=== PATIENT | male | born 1975 | race Hispanic/Latino ===

== ENCOUNTER 2016-11-02 13:42 | Emergency (ER) | payer OTHER ==
[~2016-11-02 13:42] MED LIST: OXYC-208 PO; PERC5TAB6 PO; TYLE650T30 PO; no home medications
--- NOTE | 2016-11-02 14:23 | REP ---
Left knee series: Five views. History: Pain. No injury. Findings: Five views of the left knee demonstrate a bipartite patella unchanged from the comparison study October 08, 2015. Bones, joints, and soft tissues are otherwise unremarkable. Impression: Bipartite patella, normal variant. No other radiographic abnormality. Signed by Tushar Caldera MD 11/02/2016 02:14 P
--- NOTE | 2016-11-02 15:11 | EDDOCDS ---
Physician Documentation [facility] Name: Reilly Quinonez Age: 40 yrs Sex: Male : 1975 Arrival Date: 11/02/2016 Time: 13:42 Bed Triage 1 Private MD: Mark Dorman W Disposition: 11/02/16 15:07 Discharged to Home/Self Care. Impression: Pain in left knee. - Condition is Stable. - Discharge Instructions: Pain Without a Known Cause, Knee Pain. - Medication Reconciliation, Local Pharmacy Hours form. - Follow up: Orthopaedics, [facility]; When: Call to arrange an appointment; Reason: Further diagnostic work-up, Recheck today's complaints, Continuance of care. - Problem is new. - Symptoms are unchanged. Historical: - Allergies: PENICILLINS (Rash); - Home Meds: 1. none - PMHx: Cancer, Testicular; - PSHx: testicle removal with lymph node removal (2013); - Social history: Smoking status: Patient uses tobacco products, current every day smoker. No barriers to communication noted, The patient speaks fluent Mohawk, Speaks appropriately for age. - Family history: Not pertinent. - : The pt / caregiver states he / she is not on anticoagulants. Home medication list is obtained from the patient. - Exposure Risk Screening:: None identified. Vital Signs: 11/02 13:44 BP 110 / 72; Pulse 114; Resp 18 S; Temp 99.6(O); Pulse Ox 99% on R/A; Weight 74.84 kg / gr2 164.99 lbs (R); Height 5 ft. 8 in. (172.72 cm) (R); Pain 10/10; 15:06 BP 112 / 74; Pulse 98; Resp 16; Temp 98.5(O); Pulse Ox 99% on R/A; Pain 3/10; js13 13:44 Body Mass Index 25.09 (74.84 kg, 172.72 cm) gr2 MDM: 13:52 Knee, Complete Ordered. EDMS Signatures: Dispatcher [employer] EDMS Faye Nunez RN RN kr3 Mateusz Herndon PA PA btw Sullivan, JenniferRN RN js13 MTDD
--- NOTE | 2016-11-02 15:11 | EDDOCDS ---
Nurse's Notes [facility] Name: Reilly Quinonez Age: 40 yrs Sex: Male : 1975 Arrival Date: 11/02/2016 Time: 13:42 Bed Triage 1 Private MD: Mark Dorman W Diagnosis: Pain in left knee Presentation: 11/02 13:47 Presenting complaint: Patient states: left knee pain for several days with no known kr3 injury. Adult Sepsis Screening: The patient does not have new or worsening altered mentation. Patient's respiratory rate is less than 22. Systolic blood pressure is greater than 100. Patient has a qSOFA score of 0- Negative Sepsis Screen. Suicide/Homicide risk assessment- the patient denies having any suicidal and/or homicidal ideations and does not present with any other emotional, behavioral or mental health complaints. 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 Transition of care: patient was not received from another setting of care. 13:47 Acuity: COLELEN Level 4 kr3 13:47 Method Of Arrival: Walkin/Carried/Asstd kr3 Triage Assessment: 13:49 General: Appears uncomfortable, Behavior is cooperative. Pain: Location: left knee. kr3 Pain: Aggravated by repositioning, weight bearing. HIV screening NA for this visit Offered previously. Respiratory: Respiratory effort is even, unlabored. Musculoskeletal: Range of motion limited in left knee. Historical: - Allergies: PENICILLINS (Rash); - Home Meds: 1. none - PMHx: Cancer, Testicular; - PSHx: testicle removal with lymph node removal (2013); - Social history: Smoking status: Patient uses tobacco products, current every day smoker. No barriers to communication noted, The patient speaks fluent Greek, Speaks appropriately for age. - Family history: Not pertinent. - : The pt / caregiver states he / she is not on anticoagulants. Home medication list is obtained from the patient. - Exposure Risk Screening:: None identified. Screenin:30 Screening information is obtained from the patient. Fall risk: No risks identified. js13 Assistance ADL's: requires no assistance with activities of daily living. Abuse/DV Screen: The patient / caregiver reports he/she is: not in a situation that causes fear, pain or injury. Nutritional screening: No deficits noted. Advance Directives: There is no active DNR order. home support is adequate. Assessment: 15:06 General: Appears in no apparent distress, Behavior is appropriate for age, cooperative. js13 Pain: Location: left knee. Neurological: Level of Consciousness is awake, alert. Respiratory: Airway is patent Respiratory effort is even, unlabored, Respiratory pattern is regular, symmetrical. Derm: Skin is pink, warm & dry. Vital Signs: 13:44 BP 110 / 72; Pulse 114; Resp 18 S; Temp 99.6(O); Pulse Ox 99% on R/A; Weight 74.84 kg gr2 (R); Height 5 ft. 8 in. (172.72 cm) (R); Pain 10/10; 15:06 BP 112 / 74; Pulse 98; Resp 16; Temp 98.5(O); Pulse Ox 99% on R/A; Pain 3/10; js13 13:44 Body Mass Index 25.09 (74.84 kg, 172.72 cm) gr2 Vitals: 13:44 Log In Time: November 02, 2016 at 13:44. gr2 ED Course: 13:43 Patient visited by Devin Gr. gr2 13:43 Patient moved to Waiting gr2 13:44 Mark Dorman is Private Physician. gr2 13:45 Patient visited by Devin Gr. gr2 13:45 Patient moved to Pre RCE gr2 13:48 Triage Initiated kr3 14:19 Patient moved to Triage 1 js13 14:30 The patient / caregiver is instructed regarding the plan of care and ED course. js13 14:30 No IV's were initiated during this patient's visit. No procedures done that require js13 assistance. 14:39 Knee, Complete Returned. EDMS 14:49 [facility]z Herndon PA [facility] btw 14:49 Dixie Calles MD is Attending Physician. btw 14:49 Patient visited by Mateusz Herndon PA. btw 15:[facility] btw Order Results: Radiology Order: Knee, Complete Test: Knee, Complete REASON FOR EXAMINATION: pain no injury; Left knee series: Five views.; ; History: Pain. 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 Bones, joints, and soft tissues are; otherwise unremarkable.; ; Impression:; ; Bipartite patella, normal variant. No other radiographic abnormality.; ; ; Signed by; Tushar Caldera MD 11/02/2016 02:14 P; Outcome: 15:06 Discharge Assessment: Patient awake, alert and oriented x 3. No cognitive and/or js13 functional deficits noted. Patient verbalized understanding of disposition instructions. patient administered narcotics - no. The following High Risk Discharge criteria are identified: None. Discharged to home ambulatory. Condition: stable. Discharge instructions given to patient, Instructed on discharge instructions, follow up and referral plans. Demonstrated understanding of instructions, Pt was receptive of discharge instructions/ teaching. No special radiology studies were completed. Property :Personal belongings accompany Pt. 15:07 Discharge ordered by Provider. bt 15:11 Patient left the ED. js13 Signatures: Dispatcher [employer] EDMS Faye Nunez,RN RN kr3 Mateusz Herndon PA PA btw Sullivan, Jennifer, RN RN js13 Devin Gr gr2 [facility]ITALCh[facility]
--- NOTE | 2016-11-02 15:22 | EDDOCDS ---
Nurse's Notes [facility] Name: Reilly Quinonez Age: 40 yrs Sex: Male : 1975 Arrival Date: 11/02/2016 Time: 13:42 Bed Triage 1 Private MD: Mark Dorman W Diagnosis: Pain in left knee Presentation: 11/02 13:47 Presenting complaint: Patient states: left knee pain for several days with no known kr3 injury. Adult Sepsis Screening: The patient does not have new or worsening altered mentation. Patient's respiratory rate is less than 22. Systolic blood pressure is greater than 100. Patient has a qSOFA score of 0- Negative Sepsis Screen. Suicide/Homicide risk assessment- the patient denies having any suicidal and/or homicidal ideations and does not present with any other emotional, behavioral or mental health complaints. 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 Transition of care: patient was not received from another setting of care. 13:47 Acuity: COLLEEN Level 4 kr3 13:47 Method Of Arrival: Walkin/Carried/Asstd kr3 Triage Assessment: 13:49 General: Appears uncomfortable, Behavior is cooperative. Pain: Location: left knee. kr3 Pain: Aggravated by repositioning, weight bearing. HIV screening NA for this visit Offered previously. Respiratory: Respiratory effort is even, unlabored. Musculoskeletal: Range of motion limited in left knee. Historical: - Allergies: PENICILLINS (Rash); - Home Meds: 1. none - PMHx: Cancer, Testicular; - PSHx: testicle removal with lymph node removal (2013); - Social history: Smoking status: Patient uses tobacco products, current every day smoker. No barriers to communication noted, The patient speaks fluent Persian, Speaks appropriately for age. - Family history: Not pertinent. - : The pt / caregiver states he / she is not on anticoagulants. Home medication list is obtained from the patient. - Exposure Risk Screening:: None identified. Screenin:30 Screening information is obtained from the patient. Fall risk: No risks identified. js13 Assistance ADL's: requires no assistance with activities of daily living. Abuse/DV Screen: The patient / caregiver reports he/she is: not in a situation that causes fear, pain or injury. Nutritional screening: No deficits noted. Advance Directives: There is no active DNR order. home support is adequate. Assessment: 15:06 General: Appears in no apparent distress, Behavior is appropriate for age, cooperative. js13 Pain: Location: left knee. Neurological: Level of Consciousness is awake, alert. Respiratory: Airway is patent Respiratory effort is even, unlabored, Respiratory pattern is regular, symmetrical. Derm: Skin is pink, warm & dry. Vital Signs: 13:44 BP 110 / 72; Pulse 114; Resp 18 S; Temp 99.6(O); Pulse Ox 99% on R/A; Weight 74.84 kg gr2 (R); Height 5 ft. 8 in. (172.72 cm) (R); Pain 10/10; 15:06 BP 112 / 74; Pulse 98; Resp 16; Temp 98.5(O); Pulse Ox 99% on R/A; Pain 3/10; js13 13:44 Body Mass Index 25.09 (74.84 kg, 172.72 cm) gr2 Vitals: 13:44 Log In Time: November 02, 2016 at 13:44. gr2 ED Course: 13:43 Patient visited by Devin Gr. gr2 13:43 Patient moved to Waiting gr2 13:44 Mark Dorman is Private Physician. gr2 13:45 Patient visited by Devin Gr. gr2 13:45 Patient moved to Pre RCE gr2 13:48 Triage Initiated kr3 14:19 Patient moved to Triage 1 js13 14:30 The patient / caregiver is instructed regarding the plan of care and ED course. js13 14:30 No IV's were initiated during this patient's visit. No procedures done that require js13 assistance. 14:39 Knee, Complete Returned. EDMS 14:49 Mateusz Herndon PA is [facility]. btw 14:49 Dixie Calles MD is Attending Physician. btw 14:49 Patient visited by Mateusz Herndon PA. btw 15:07 [facility]. btw Order Results: Radiology Order: Knee, Complete Test: Knee, Complete REASON FOR EXAMINATION: pain no injury; Left knee series: Five views.; ; History: Pain. 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 Bones, joints, and soft tissues are; otherwise unremarkable.; ; Impression:; ; Bipartite patella, normal variant. No other radiographic abnormality.; ; ; Signed by; Tushar Caldera MD 11/02/2016 02:14 P; Outcome: 15:06 Discharge Assessment: Patient awake, alert and oriented x 3. No cognitive and/or js13 functional deficits noted. Patient verbalized understanding of disposition instructions. patient administered narcotics - no. The following High Risk Discharge criteria are identified: None. Discharged to home ambulatory. Condition: stable. Discharge instructions given to patient, Instructed on discharge instructions, follow up and referral plans. Demonstrated understanding of instructions, Pt was receptive of discharge instructions/ teaching. No special radiology studies were completed. Property :Personal belongings accompany Pt. 15:07 Discharge ordered by Provider. btw 15:11 Patient left the ED. js13 15:21 Patient left the ED. btw Signatures: Dispatcher [employer] EDFaye Victor,TERRI RN kr3 Mateusz Herndon PA PA btw Virginia Hale RN RN js13 Devin Gr gr2 CAR
--- NOTE | 2016-11-02 15:22 | EDDOCDS ---
Physician Documentation [facility] Name: Reilly Quinonez Age: 40 yrs Sex: Male : 1975 Arrival Date: 11/02/2016 Time: 13:42 Bed Triage 1 Private MD: Mark Dorman W Disposition: 11/02/16 15:07 Discharged to Home/Self Care. Impression: Pain in left knee. - Condition is Stable. - Discharge Instructions: Pain Without a Known Cause, Knee Pain. - Medication Reconciliation, Local Pharmacy Hours form. - Follow up: Orthopaedics, [facility]; When: Call to arrange an appointment; Reason: Further diagnostic work-up, Recheck today's complaints, Continuance of care. - Problem is new. - Symptoms are unchanged. Historical: - Allergies: PENICILLINS (Rash); - Home Meds: 1. none - PMHx: Cancer, Testicular; - PSHx: testicle removal with lymph node removal (2013); - Social history: Smoking status: Patient uses tobacco products, current every day smoker. No barriers to communication noted, The patient speaks fluent Latvian, Speaks appropriately for age. - Family history: Not pertinent. - : The pt / caregiver states he / she is not on anticoagulants. Home medication list is obtained from the patient. - Exposure Risk Screening:: None identified. Vital Signs: 11/02 13:44 BP 110 / 72; Pulse 114; Resp 18 S; Temp 99.6(O); Pulse Ox 99% on R/A; Weight 74.84 kg / gr2 164.99 lbs (R); Height 5 ft. 8 in. (172.72 cm) (R); Pain 10/10; 15:06 BP 112 / 74; Pulse 98; Resp 16; Temp 98.5(O); Pulse Ox 99% on R/A; Pain 3/10; js13 13:44 Body Mass Index 25.09 (74.84 kg, 172.72 cm) gr2 MDM: 13:52 Knee, Complete Ordered. EDMS Signatures: Dispatcher [employer] EDMS Faye Nunez RN RN kr3 Mateusz Herndon PA PA btw Sullivan, JenniferRN RN js13 MTDD
--- NOTE | 2016-11-02 15:23 | EDDOCDS ---
Physician Documentation [facility] Name: Reilly Quinonez Age: 40 yrs Sex: Male : 1975 Arrival Date: 11/02/2016 Time: 13:42 Bed Triage 1 Private MD: Mark Dorman W Disposition: 11/02/16 15:07 Discharged to Home/Self Care. Impression: Pain in left knee. - Condition is Stable. - Discharge Instructions: Pain Without a Known Cause, Knee Pain. - Medication Reconciliation, Local Pharmacy Hours form. - Follow up: Orthopaedics, [facility]; When: Call to arrange an appointment; Reason: Further diagnostic work-up, Recheck today's complaints, Continuance of care. - Problem is new. - Symptoms are unchanged. Historical: - Allergies: PENICILLINS (Rash); - Home Meds: 1. none - PMHx: Cancer, Testicular; - PSHx: testicle removal with lymph node removal (2013); - Social history: Smoking status: Patient uses tobacco products, current every day smoker. No barriers to communication noted, The patient speaks fluent Urdu, Speaks appropriately for age. - Family history: Not pertinent. - : The pt / caregiver states he / she is not on anticoagulants. Home medication list is obtained from the patient. - Exposure Risk Screening:: None identified. Vital Signs: 11/02 13:44 BP 110 / 72; Pulse 114; Resp 18 S; Temp 99.6(O); Pulse Ox 99% on R/A; Weight 74.84 kg / gr2 164.99 lbs (R); Height 5 ft. 8 in. (172.72 cm) (R); Pain 10/10; 15:06 BP 112 / 74; Pulse 98; Resp 16; Temp 98.5(O); Pulse Ox 99% on R/A; Pain 3/10; js13 13:44 Body Mass Index 25.09 (74.84 kg, 172.72 cm) gr2 MDM: 13:52 Knee, Complete Ordered. EDMS Signatures: Dispatcher [employer] EDMS Faye Nunez RN RN kr3 Mateusz Herndon PA PA btw Sullivan, JenniferRN RN js13 MTDD
--- NOTE | 2016-11-02 15:23 | EDDOCDS ---
Nurse's Notes [facility] Name: Reilly Quinonez Age: 40 yrs Sex: Male : 1975 Arrival Date: 11/02/2016 Time: 13:42 Bed Triage 1 Private MD: Mark Dorman W Diagnosis: Pain in left knee Presentation: 11/02 13:47 Presenting complaint: Patient states: left knee pain for several days with no known kr3 injury. Adult Sepsis Screening: The patient does not have new or worsening altered mentation. Patient's respiratory rate is less than 22. Systolic blood pressure is greater than 100. Patient has a qSOFA score of 0- Negative Sepsis Screen. Suicide/Homicide risk assessment- the patient denies having any suicidal and/or homicidal ideations and does not present with any other emotional, behavioral or mental health complaints. 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 Transition of care: patient was not received from another setting of care. 13:47 Acuity: COLLEEN Level 4 kr3 13:47 Method Of Arrival: Walkin/Carried/Asstd kr3 Triage Assessment: 13:49 General: Appears uncomfortable, Behavior is cooperative. Pain: Location: left knee. kr3 Pain: Aggravated by repositioning, weight bearing. HIV screening NA for this visit Offered previously. Respiratory: Respiratory effort is even, unlabored. Musculoskeletal: Range of motion limited in left knee. Historical: - Allergies: PENICILLINS (Rash); - Home Meds: 1. none - PMHx: Cancer, Testicular; - PSHx: testicle removal with lymph node removal (2013); - Social history: Smoking status: Patient uses tobacco products, current every day smoker. No barriers to communication noted, The patient speaks fluent Divehi, Speaks appropriately for age. - Family history: Not pertinent. - : The pt / caregiver states he / she is not on anticoagulants. Home medication list is obtained from the patient. - Exposure Risk Screening:: None identified. Screenin:30 Screening information is obtained from the patient. Fall risk: No risks identified. js13 Assistance ADL's: requires no assistance with activities of daily living. Abuse/DV Screen: The patient / caregiver reports he/she is: not in a situation that causes fear, pain or injury. Nutritional screening: No deficits noted. Advance Directives: There is no active DNR order. home support is adequate. Assessment: 15:06 General: Appears in no apparent distress, Behavior is appropriate for age, cooperative. js13 Pain: Location: left knee. Neurological: Level of Consciousness is awake, alert. Respiratory: Airway is patent Respiratory effort is even, unlabored, Respiratory pattern is regular, symmetrical. Derm: Skin is pink, warm & dry. Vital Signs: 13:44 BP 110 / 72; Pulse 114; Resp 18 S; Temp 99.6(O); Pulse Ox 99% on R/A; Weight 74.84 kg gr2 (R); Height 5 ft. 8 in. (172.72 cm) (R); Pain 10/10; 15:06 BP 112 / 74; Pulse 98; Resp 16; Temp 98.5(O); Pulse Ox 99% on R/A; Pain 3/10; js13 13:44 Body Mass Index 25.09 (74.84 kg, 172.72 cm) gr2 Vitals: 13:44 Log In Time: November 02, 2016 at 13:44. gr2 ED Course: 13:43 Patient visited by Devin Gr. gr2 13:43 Patient moved to Waiting gr2 13:44 Mark Dorman is Private Physician. gr2 13:45 Patient visited by Devin Gr. gr2 13:45 Patient moved to Pre RCE gr2 13:48 Triage Initiated kr3 14:19 Patient moved to Triage 1 js13 14:30 The patient / caregiver is instructed regarding the plan of care and ED course. js13 14:30 No IV's were initiated during this patient's visit. No procedures done that require js13 assistance. 14:39 Knee, Complete Returned. EDMS 14:49 Mateusz Herndon PA is [facility]. btw 14:49 Dixie Calles MD is Attending Physician. btw 14:49 Patient visited by Mateusz Herndon PA. btw 15:07 [facility] btw Order Results: Radiology Order: Knee, Complete Test: Knee, Complete REASON FOR EXAMINATION: pain no injury; Left knee series: Five views.; ; History: Pain. 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 Bones, joints, and soft tissues are; otherwise unremarkable.; ; Impression:; ; Bipartite patella, normal variant. No other radiographic abnormality.; ; ; Signed by; Tushar Caldera MD 11/02/2016 02:14 P; Outcome: 15:06 Discharge Assessment: Patient awake, alert and oriented x 3. No cognitive and/or js13 functional deficits noted. Patient verbalized understanding of disposition instructions. patient administered narcotics - no. The following High Risk Discharge criteria are identified: None. Discharged to home ambulatory. Condition: stable. Discharge instructions given to patient, Instructed on discharge instructions, follow up and referral plans. Demonstrated understanding of instructions, Pt was receptive of discharge instructions/ teaching. No special radiology studies were completed. Property :Personal belongings accompany Pt. 15:07 Discharge ordered by Provider. btw 15:11 Patient left the ED. js13 15:21 Patient left the ED. btw 15:22 Patient left the ED. btw Signatures: Dispatcher [employer] EDMS Faye Nunez,RN RN kr3 Mateusz Herndon PA PA btVirginia BriggsRN RN js13 Devin Gr gr2 CAR
--- NOTE | 2016-11-04 16:24 | EDDOCDS ---
Nurse's Notes [facility] Name: Reilly uQinonez Age: 40 yrs Sex: Male : 1975 Arrival Date: 11/02/2016 Time: 13:42 Bed Triage 1 Private MD: Mark Dorman W Diagnosis: Pain in left knee Presentation: 11/02 13:47 Presenting complaint: Patient states: left knee pain for several days with no known kr3 injury. Adult Sepsis Screening: The patient does not have new or worsening altered mentation. Patient's respiratory rate is less than 22. Systolic blood pressure is greater than 100. Patient has a qSOFA score of 0- Negative Sepsis Screen. Suicide/Homicide risk assessment- the patient denies having any suicidal and/or homicidal ideations and does not present with any other emotional, behavioral or mental health complaints. 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 Transition of care: patient was not received from another setting of care. 13:47 Acuity: COLLEEN Level 4 kr3 13:47 Method Of Arrival: Walkin/Carried/Asstd kr3 Triage Assessment: 13:49 General: Appears uncomfortable, Behavior is cooperative. Pain: Location: left knee. kr3 Pain: Aggravated by repositioning, weight bearing. HIV screening NA for this visit Offered previously. Respiratory: Respiratory effort is even, unlabored. Musculoskeletal: Range of motion limited in left knee. Historical: - Allergies: PENICILLINS (Rash); - Home Meds: 1. none - PMHx: Cancer, Testicular; - PSHx: testicle removal with lymph node removal (2013); - Social history: Smoking status: Patient uses tobacco products, current every day smoker. No barriers to communication noted, The patient speaks fluent French, Speaks appropriately for age. - Family history: Not pertinent. - : The pt / caregiver states he / she is not on anticoagulants. Home medication list is obtained from the patient. - Exposure Risk Screening:: None identified. Screenin:30 Screening information is obtained from the patient. Fall risk: No risks identified. js13 Assistance ADL's: requires no assistance with activities of daily living. Abuse/DV Screen: The patient / caregiver reports he/she is: not in a situation that causes fear, pain or injury. Nutritional screening: No deficits noted. Advance Directives: There is no active DNR order. home support is adequate. Assessment: 15:06 General: Appears in no apparent distress, Behavior is appropriate for age, cooperative. js13 Pain: Location: left knee. Neurological: Level of Consciousness is awake, alert. Respiratory: Airway is patent Respiratory effort is even, unlabored, Respiratory pattern is regular, symmetrical. Derm: Skin is pink, warm & dry. Vital Signs: 13:44 BP 110 / 72; Pulse 114; Resp 18 S; Temp 99.6(O); Pulse Ox 99% on R/A; Weight 74.84 kg gr2 (R); Height 5 ft. 8 in. (172.72 cm) (R); Pain 10/10; 15:06 BP 112 / 74; Pulse 98; Resp 16; Temp 98.5(O); Pulse Ox 99% on R/A; Pain 3/10; js13 13:44 Body Mass Index 25.09 (74.84 kg, 172.72 cm) gr2 Vitals: 13:44 Log In Time: November 02, 2016 at 13:44. gr2 ED Course: 13:43 Patient visited by Devin Gr. gr2 13:43 Patient moved to Waiting gr2 13:44 Mark Dorman is Private Physician. gr2 13:45 Patient visited by Devin Gr. gr2 13:45 Patient moved to Pre RCE gr2 13:48 Triage Initiated kr3 14:19 Patient moved to Triage 1 js13 14:30 The patient / caregiver is instructed regarding the plan of care and ED course. js13 14:30 No IV's were initiated during this patient's visit. No procedures done that require js13 assistance. 14:39 Knee, Complete Returned. EDMS 14:49 [facility] btw 14:49 Dixie Calles MD is Attending Physician. btw 14:49 Patient visited by Mateusz Herndon PA. btw 15:07 Orthopaedics, [facility] is Referral Physician. btw 15:37 [facility] Payment Agreement was scanned into [employer] and attached to record. gjb 16:41 Patient name changed from Reilly\S\\S\Cristiano\S\ to Reilly\S\ \S\Cristiano. EDMS 21:03 T-Sheet-- Draft Copy was scanned into [employer] and attached to record. klr Order Results: Radiology Order: Knee, Complete Test: Knee, Complete REASON FOR EXAMINATION: pain no injury; Left knee series: Five views.; ; History: Pain. 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 Bones, joints, and soft tissues are; otherwise unremarkable.; ; Impression:; ; Bipartite patella, normal variant. No other radiographic abnormality.; ; ; Signed by; Tushar Caldera MD 11/02/2016 02:14 P; Outcome: 15:06 Discharge Assessment: Patient awake, alert and oriented x 3. No cognitive and/or js13 functional deficits noted. Patient verbalized understanding of disposition instructions. patient administered narcotics - no. The following High Risk Discharge criteria are identified: None. Discharged to home ambulatory. Condition: stable. Discharge instructions given to patient, Instructed on discharge instructions, follow up and referral plans. Demonstrated understanding of instructions, Pt was receptive of discharge instructions/ teaching. No special radiology studies were completed. Property :Personal belongings accompany Pt. 15:07 Discharge ordered by Provider. btw 15:11 Patient left the ED. js13 15:21 Patient left the ED. btw 15:22 Patient left the ED. btw Signatures: Dispatcher [employer] EDMS Faye Nunez,RN RN gordo3 Mateusz Herndon PA PA btw Virginia Hale RN RN js13 Devin Gr2 Nya Plata Kathie klr Chart Complete MTDD
--- NOTE | 2016-11-04 16:24 | EDDOCDS ---
Physician Documentation [facility] Name: Reilly Quinonez Age: 40 yrs Sex: Male : 1975 Arrival Date: 11/02/2016 Time: 13:42 Bed Triage 1 Private MD: Mark Dorman W Disposition: 11/02/16 15:07 Discharged to Home/Self Care. Impression: Pain in left knee. - Condition is Stable. - Discharge Instructions: Pain Without a Known Cause, Knee Pain. - Medication Reconciliation, Local Pharmacy Hours form. - Follow up: Orthopaedics, [facility]; When: Call to arrange an appointment; Reason: Further diagnostic work-up, Recheck today's complaints, Continuance of care. - Problem is new. - Symptoms are unchanged. Historical: - Allergies: PENICILLINS (Rash); - Home Meds: 1. none - PMHx: Cancer, Testicular; - PSHx: testicle removal with lymph node removal (2013); - Social history: Smoking status: Patient uses tobacco products, current every day smoker. No barriers to communication noted, The patient speaks fluent Slovenian, Speaks appropriately for age. - Family history: Not pertinent. - : The pt / caregiver states he / she is not on anticoagulants. Home medication list is obtained from the patient. - Exposure Risk Screening:: None identified. Vital Signs: 11/02 13:44 BP 110 / 72; Pulse 114; Resp 18 S; Temp 99.6(O); Pulse Ox 99% on R/A; Weight 74.84 kg / gr2 164.99 lbs (R); Height 5 ft. 8 in. (172.72 cm) (R); Pain 10/10; 15:06 BP 112 / 74; Pulse 98; Resp 16; Temp 98.5(O); Pulse Ox 99% on R/A; Pain 3/10; js13 13:44 Body Mass Index 25.09 (74.84 kg, 172.72 cm) gr2 MDM: 13:52 Knee, Complete Ordered. EDMS 15:37 [facility] Payment Agreement was scanned into [employer] and attached to record. gjb 15:37 Financial registration complete. gjb 21:03 T-Sheet-- Draft Copy was scanned into [employer] and attached to record. klr Signatures: Dispatcher [employer] EDMS NunezFaye,RN RN kr3 Mateusz Herndon PA PA btw Sullivan, JenniferRN RN js13 Nya Plata Kathie klr The chart was reviewed and I authenticate all verbal orders and agree with the evaluation and treatment provided.Attachments: 15:37 [facility] Payment Agreement clara 21:03 T-Sheet-- Draft Copy jason Chart Complete MTDD
--- NOTE | 2016-11-04 16:24 | EDDOCDS ---
Physician Documentation [facility] Name: Reilly Quinonez Age: 40 yrs Sex: Male : 1975 Arrival Date: 11/02/2016 Time: 13:42 Bed Triage 1 Private MD: Mark Dorman W Disposition: 11/02/16 15:07 Discharged to Home/Self Care. Impression: Pain in left knee. - Condition is Stable. - Discharge Instructions: Pain Without a Known Cause, Knee Pain. - Medication Reconciliation, Local Pharmacy Hours form. - Follow up: Orthopaedics, [facility]; When: Call to arrange an appointment; Reason: Further diagnostic work-up, Recheck today's complaints, Continuance of care. - Problem is new. - Symptoms are unchanged. Historical: - Allergies: PENICILLINS (Rash); - Home Meds: 1. none - PMHx: Cancer, Testicular; - PSHx: testicle removal with lymph node removal (2013); - Social history: Smoking status: Patient uses tobacco products, current every day smoker. No barriers to communication noted, The patient speaks fluent Turkish, Speaks appropriately for age. - Family history: Not pertinent. - : The pt / caregiver states he / she is not on anticoagulants. Home medication list is obtained from the patient. - Exposure Risk Screening:: None identified. Vital Signs: 11/02 13:44 BP 110 / 72; Pulse 114; Resp 18 S; Temp 99.6(O); Pulse Ox 99% on R/A; Weight 74.84 kg / gr2 164.99 lbs (R); Height 5 ft. 8 in. (172.72 cm) (R); Pain 10/10; 15:06 BP 112 / 74; Pulse 98; Resp 16; Temp 98.5(O); Pulse Ox 99% on R/A; Pain 3/10; js13 13:44 Body Mass Index 25.09 (74.84 kg, 172.72 cm) gr2 MDM: 13:52 Knee, Complete Ordered. EDMS 15:37 [facility] Payment Agreement was scanned into [employer] and attached to record. gjb 15:37 Financial registration complete. gjb 21:03 T-Sheet-- Draft Copy was scanned into [employer] and attached to record. klr Signatures: Dispatcher [employer] EDMS NunezFaye,RN RN kr3 Mateusz Herndon PA PA btw Sullivan, JenniferRN RN js13 Nya Plata Kathie klr The chart was reviewed and I authenticate all verbal orders and agree with the evaluation and treatment provided.Attachments: 15:37 [facility] Payment Agreement clara 21:03 T-Sheet-- Draft Copy jason Chart Complete MTDD
== END 2016-11-02 15:22 | disposition home or self-care (01) ==
LOC: M ED 13:42
DX: M25.562 Pain in left knee (principal); Z85.47 Personal history of malignant neoplasm of testis; F17.210 Nicotine dependence, cigarettes, uncomplicated; Z88.0 Allergy status to penicillin

== ENCOUNTER 2017-03-06 21:56 | Emergency (ER) | payer OTHER ==
[~2017-03-06] VITALS: Ht 172.7 cm; Wt 72.6 kg
[2017-03-06 21:57] VITALS: BP 135/79
== END 2017-03-07 01:12 | disposition left against medical advice (07) ==
LOC: M ED 23:41
DX: R11.10 Vomiting, unspecified (principal); Z53.29 Procedure and treatment not carried out because of patient's decision for other reasons

== ENCOUNTER → 2017-03-27 | Outpatient (CLI) | payer OTHER ==
[2017-03-27 12:22] LABS: MEAN CORPUSCULAR HEMOGLOBIN 28.7 pg (27.0-33.0); MEAN CORPUSCULAR VOLUME 89.6 fl (80.0-96.0); RED CELL DISTRIBUTION WIDTH 13.7 % (11.5-14.5); WHITE BLOOD COUNT 7.4 K/mm3 (4.0-10.0)
[2017-03-27 13:10] LABS: ANION GAP 6 MEQ/L (8-16); BLOOD UREA NITROGEN 15 MG/DL (7-18); CARBON DIOXIDE LEVEL 31 MEQ/L (21-32); CHLORIDE LEVEL 104 MEQ/L (98-107); CREATININE FOR GFR 0.83 MG/DL (0.70-1.30); GLOMERULAR FILTRATION RATE > 60.0 (>60); GLUCOSE, FASTING 98 MG/DL (70-105); POTASSIUM SERUM 4.7 MEQ/L (3.5-5.1); SODIUM LEVEL 141 MEQ/L (136-145)
--- NOTE | 2017-03-27 13:30 | REP ---
REASON: History of testicular carcinoma. COMPARISON: 01/02/2016. FINDINGS: The superior mediastinal structures are midline. The cardiac silhouette is unremarkable in size, shape, and position. The diaphragmatic surfaces of the lungs are regular, and the costophrenic angles are clear. The pulmonary santos are clear. The imaged osseous structures are intact. IMPRESSION: There is no acute cardiopulmonary disease. If clinical suspicion is high due to the patient's history of cancer contrast enhanced CT is more sensitive. Signed by Amaury Ingram DO 03/27/2017 03:23 P
[2017-03-31 00:06] LABS: (LD) FRACTION 1 23 % (17-32); (LD) FRACTION 2 30 % (25-40); (LD) FRACTION 3 21 % (17-27); (LD) FRACTION 4 11 % (5-13); (LD) FRACTION 5 15 % (4-20); HCG SERUM TUMOR MARKER QUANT < 1 mIU/mL (0-3); LDH 181 IU/L (121-224)
== END ==
LOC: M LAB 11:06
PROVIDERS: ATTEND Urology
DX: Z85.47 Personal history of malignant neoplasm of testis (principal)

== ENCOUNTER → 2017-06-01 | Outpatient (CLI) | payer MEDICAID ==
[~2017-06-01] MED LIST changes: +PERC5TAB12 PO; -PERC5TAB6 PO
== END ==
LOC: M OUTALCOH 07:59
PROVIDERS: ATTEND Psychiatry & Neurology Psychiatry
DX: Z13.9 Encounter for screening, unspecified (principal); F10.20 Alcohol dependence, uncomplicated; F14.20 Cocaine dependence, uncomplicated

== ENCOUNTER → 2017-06-25 | Outpatient (RCR) | payer MEDICAID | LOC: M OUTALCOH 06-10 08:00 | PROVIDERS: ATTEND Psychiatry & Neurology Psychiatry | DX: F10.20 Alcohol dependence, uncomplicated (principal); F14.20 Cocaine dependence, uncomplicated; F17.200 Nicotine dependence, unspecified, uncomplicated ==

== ENCOUNTER → 2017-07-13 | Outpatient (REF) | payer OTHER | LOC: M SFHCPLAZ 09:51 | PROVIDERS: ATTEND Family Medicine | DX: R35.8 Other polyuria (principal); F17.200 Nicotine dependence, unspecified, uncomplicated ==

== ENCOUNTER 2017-07-23 10:00 | Outpatient (RCR) | payer MEDICAID | END 2017-07-25 | LOC: M OUTALCOH 10:00 | PROVIDERS: ATTEND Psychiatry & Neurology Psychiatry | DX: F10.20 Alcohol dependence, uncomplicated (principal); F14.20 Cocaine dependence, uncomplicated; F17.200 Nicotine dependence, unspecified, uncomplicated ==

== ENCOUNTER → 2017-09-09 | Outpatient (REF) | payer OTHER ==
[2017-09-09 12:12] LABS: ANION GAP 5 MEQ/L (8-16); BLOOD UREA NITROGEN 15 MG/DL (7-18); CALCIUM LEVEL 9.5 MG/DL (8.5-10.1); CARBON DIOXIDE LEVEL 32 MEQ/L (21-32); CHLORIDE LEVEL 104 MEQ/L (98-107); CREATININE FOR GFR 0.87 MG/DL (0.70-1.30); GLOMERULAR FILTRATION RATE > 60.0 (>60); GLUCOSE, FASTING 98 MG/DL (70-105); POTASSIUM SERUM 4.8 MEQ/L (3.5-5.1); SODIUM LEVEL 141 MEQ/L (136-145)
== END ==
LOC: M SFHCPLAZ 09:42
PROVIDERS: ATTEND Family Medicine
DX: E11.9 Type 2 diabetes mellitus without complications (principal)

== ENCOUNTER → 2017-09-24 | Outpatient (RCR) | payer MEDICAID | LOC: M OUTALCOH 08-31 12:47 | PROVIDERS: ATTEND Psychiatry & Neurology Psychiatry | DX: F10.20 Alcohol dependence, uncomplicated (principal); F14.20 Cocaine dependence, uncomplicated; F17.200 Nicotine dependence, unspecified, uncomplicated ==

== ENCOUNTER → 2017-09-30 | Outpatient (CLI) | payer OTHER ==
[2017-09-30 14:13] LABS: MEAN CORPUSCULAR HEMOGLOBIN 27.5 pg (27.0-33.0); PLATELET COUNT, AUTOMATED 350 10^3/uL (150-450); RED CELL DISTRIBUTION WIDTH 13.8 % (11.5-14.5); WHITE BLOOD COUNT 7.8 10^3/uL (4.0-10.0)
[2017-09-30 15:16] LABS: ANION GAP 6 MEQ/L (8-16); BLOOD UREA NITROGEN 19 MG/DL (7-18); CALCIUM LEVEL 9.6 MG/DL (8.5-10.1); CARBON DIOXIDE LEVEL 31 MEQ/L (21-32); CHLORIDE LEVEL 104 MEQ/L (98-107); CREATININE FOR GFR 0.85 MG/DL (0.70-1.30); GLOMERULAR FILTRATION RATE > 60.0 (>60); GLUCOSE, FASTING 79 MG/DL (70-105); SODIUM LEVEL 141 MEQ/L (136-145)
[2017-10-01 08:06] LABS: HCG SERUM TUMOR MARKER QUANT < 1 mIU/mL (0-3)
[2017-10-02 00:06] LABS: (LD) FRACTION 1 23 % (17-32); (LD) FRACTION 2 32 % (25-40); (LD) FRACTION 3 23 % (17-27); (LD) FRACTION 4 10 % (5-13); (LD) FRACTION 5 12 % (4-20); LDH 161 IU/L (121-224)
== END ==
LOC: M LAB 13:24
PROVIDERS: ATTEND Urology
DX: Z85.47 Personal history of malignant neoplasm of testis (principal)

== ENCOUNTER → 2017-10-05 | Outpatient (CLI) | payer OTHER ==
[~2017-10-05] MED LIST changes: +ISOVUE-370 76% 100ML VIAL (Q9967) As Ordered ONE
--- NOTE | 2017-10-05 16:33 | REP ---
CT of the abdomen pelvis without IV contrast and with dual phase scanning after IV contrast, initially during the late arterial, portal venous phase and later during the delayed equilibrium phase of enhancement. Comparison is a 12/03/2014. The visualized lung santos are unremarkable. The hepatic parenchyma, pancreas, spleen, gallbladder, adrenals and kidneys are unremarkable on all phases of the study. The abdominal aorta is unremarkable. There is no periaortic adenopathy. The bowel and mesentery are unremarkable. Pelvis: The appendix is unremarkable. There is no adenopathy or ascites. Bladder is unremarkable. The pelvic bowel loops are unremarkable. There are no lytic, blastic or destructive skeletal changes. Essentially negative CT scan of the abdomen pelvis. There is no adenopathy or mass. No ascites. No significant interval change. Signed by Damir Mccarthy MD 10/05/2017 04:25 P
== END ==
LOC: M RAD 14:48
PROVIDERS: ATTEND Urology
DX: Z85.47 Personal history of malignant neoplasm of testis (principal)
CPT/HCPCS: 74178; Q9967

== ENCOUNTER 2017-10-13 16:00 | Outpatient (RCR) | payer MEDICAID | END 2017-10-25 | LOC: M OUTALCOH 16:00 | DX: F10.20 Alcohol dependence, uncomplicated (principal); F14.20 Cocaine dependence, uncomplicated; F17.200 Nicotine dependence, unspecified, uncomplicated ==

== ENCOUNTER 2017-10-21 22:39 | Emergency (ER) | payer OTHER, MEDICAID ==
[2017-10-21] MEDS ORDERED: NEOSPORIN OINT 0.9 GM PKT (FLOOR STOCK) As Ordered (23:50)
== END 2017-10-22 | disposition home or self-care (01) ==
LOC: M ED 10-22
DX: S61.012A Laceration without foreign body of left thumb without damage to nail, initial encounter (principal); W26.8XXA Contact with other sharp object(s), not elsewhere classified, initial encounter; Y92.009 Unspecified place in unspecified non-institutional (private) residence as the place of occurrence of the external cause; Y93.G1 Activity, food preparation and clean up; E11.9 Type 2 diabetes mellitus without complications; J45.909 Unspecified asthma, uncomplicated; F17.210 Nicotine dependence, cigarettes, uncomplicated; Z79.84 Long term (current) use of oral hypoglycemic drugs; Z79.51 Long term (current) use of inhaled steroids; Z88.0 Allergy status to penicillin; Z88.1 Allergy status to other antibiotic agents
CPT/HCPCS: 99284

== ENCOUNTER 2017-10-30 07:03 | Emergency (ER) | payer OTHER | END 2017-10-30 08:53 | disposition home or self-care (01) | LOC: M ED 07:03 | DX: Z48.02 Encounter for removal of sutures (principal); E11.9 Type 2 diabetes mellitus without complications; J45.909 Unspecified asthma, uncomplicated; Z79.84 Long term (current) use of oral hypoglycemic drugs; Z79.899 Other long term (current) drug therapy; Z88.0 Allergy status to penicillin; Z88.1 Allergy status to other antibiotic agents | CPT/HCPCS: 99282 ==

== ENCOUNTER → 2018-03-30 | Outpatient (CLI) | payer OTHER ==
[2018-03-30 18:59] LABS: ANION GAP 8 MEQ/L (8-16); BLOOD UREA NITROGEN 15 MG/DL (7-18); CALCIUM LEVEL 9.5 MG/DL (8.5-10.1); CARBON DIOXIDE LEVEL 27 MEQ/L (21-32); CHLORIDE LEVEL 107 MEQ/L (98-107); CREATININE FOR GFR 0.81 MG/DL (0.70-1.30); GLOMERULAR FILTRATION RATE > 60.0 (>60); GLUCOSE, FASTING 64 MG/DL (70-100); LDH LACTATE DEHYDROGENASE 200 U/L (87-241); POTASSIUM SERUM 5.1 MEQ/L (3.5-5.1); SODIUM LEVEL 142 MEQ/L (136-145)
[2018-03-30 19:03] LABS: ALPHA FETOPROTEIN TUMOR QUANT 2.8 NG/ML (<8.1)
[2018-03-30 19:20] LABS: HEMOGLOBIN 13.4 g/dl (13.5-17.5); MEAN CORPUSCULAR HEMOGLOBIN 27.5 pg (27.0-33.0); MEAN CORPUSCULAR HGB CONC 31.9 g/dl (32.0-36.5); MEAN CORPUSCULAR VOLUME 86.2 fl (80.0-96.0); PLATELET COUNT, AUTOMATED 389 10^3/uL (150-450); RED BLOOD COUNT 4.87 10^6/uL (4.30-6.10); RED CELL DISTRIBUTION WIDTH 14.7 % (11.5-14.5); WHITE BLOOD COUNT 10.4 10^3/uL (4.0-10.0)
[2018-04-01 10:16] LABS: HCG SERUM TUMOR MARKER QUANT 1 mIU/mL (0-3)
== END ==
LOC: M SMT 12:17
DX: Z85.47 Personal history of malignant neoplasm of testis (principal)
CPT/HCPCS: 83615

== ENCOUNTER 2018-04-29 00:10 | Emergency (ER) | payer OTHER ==
[2018-04-29] MEDS: LIDOCAINE 1% MDV 20ML VIAL IM (01:31)
[2018-04-29] MEDS: CLINDAMYCIN 150 MG CAP PO (01:41)
== END 2018-04-29 01:55 | disposition home or self-care (01) ==
LOC: M ED 00:10
DX: S61.012A Laceration without foreign body of left thumb without damage to nail, initial encounter (principal); W26.8XXA Contact with other sharp object(s), not elsewhere classified, initial encounter; Y92.89 Other specified places as the place of occurrence of the external cause; E11.9 Type 2 diabetes mellitus without complications; Z85.47 Personal history of malignant neoplasm of testis; F17.200 Nicotine dependence, unspecified, uncomplicated; Z88.0 Allergy status to penicillin; Z88.8 Allergy status to other drugs, medicaments and biological substances; Z79.84 Long term (current) use of oral hypoglycemic drugs
CPT/HCPCS: 12001

== ENCOUNTER → 2018-05-06 | Outpatient (CLI) | payer OTHER ==
[2018-05-06 16:21] LABS: RETIC HEMOGLOBIN EQUIVALENT 32.1 pg (24-36); RETICULOCYTE # 46.6 10^9/L (17-77)
[2018-05-06 16:48] LABS: ESTIMATED AVERAGE GLUCOSE 140 MG/DL (60-110); HEMOGLOBIN A1c 6.5 %
[2018-05-06 17:25] LABS: CREATININE, URINE 78.3 MG/DL; MALB URINE SIEMENS 7.8 MG/L; MAU/CREAT RATIO 9.9 MCG/MG (0.0-30.0)
[2018-05-06 17:33] LABS: ANION GAP 10 MEQ/L (8-16); BLOOD UREA NITROGEN 23 MG/DL (7-18); CARBON DIOXIDE LEVEL 27 MEQ/L (21-32); CHLORIDE LEVEL 106 MEQ/L (98-107); CHOLESTEROL LEVEL 200 MG/DL (<200); CHOLESTEROL RISK RATIO 3.846 (<5); FERRITIN 58 NG/ML (26-388); GLOMERULAR FILTRATION RATE > 60.0 (>60); GLUCOSE, FASTING 128 MG/DL (70-100); HDL CHOLESTEROL 52 MG/DL (>40); IRON (FE) 80 UG/DL (65-175); NON-HDL-C 148 MG/DL; PERCENT SATURATION 25.1 % (19.7-50.0); POTASSIUM SERUM 4.4 MEQ/L (3.5-5.1); SODIUM LEVEL 143 MEQ/L (136-145); TOTAL IRON BINDING CAPACITY 319 UG/DL (250-450); TRIGLYCERIDES LEVEL 85 MG/DL (<150)
[2018-05-08 09:10] LABS: TRANSFERRIN 249 mg/dL (200-370)
== END ==
LOC: M LAB 15:35
DX: E11.9 Type 2 diabetes mellitus without complications (principal)
CPT/HCPCS: 83036

== ENCOUNTER 2018-07-15 16:23 | Emergency (ER) | payer OTHER ==
[2018-07-15] MEDS: CLINDAMYCIN 150 MG CAP PO (19:45)
== END 2018-07-15 19:54 | disposition home or self-care (01) ==
LOC: M ED 16:23
DX: L03.114 Cellulitis of left upper limb (principal); T22.012D Burn of unspecified degree of left forearm, subsequent encounter; X58.XXXD Exposure to other specified factors, subsequent encounter; Y92.89 Other specified places as the place of occurrence of the external cause; E11.9 Type 2 diabetes mellitus without complications; F17.210 Nicotine dependence, cigarettes, uncomplicated; Z85.47 Personal history of malignant neoplasm of testis; Z88.0 Allergy status to penicillin; Z88.8 Allergy status to other drugs, medicaments and biological substances; Z79.899 Other long term (current) drug therapy
CPT/HCPCS: 99283

== ENCOUNTER → 2019-01-07 | Outpatient (CLI) | payer OTHER ==
[~2019-01-07] MED LIST changes: +BACT800T5 PO; +BREO1INH INH; +CLEO300C2 PO; -ISOVUE-370 76% 100ML VIAL (Q9967) As Ordered ONE; +METF500T13 PO; +NASA1SPR; +PROAAER10 INH; +TYLE325T5 PO
[2019-01-07 11:21] LABS: HEMOGLOBIN A1c 6.4 %
[2019-01-07 11:28] LABS: CHOLESTEROL RISK RATIO 3.979 (<5)
--- NOTE | 2019-01-07 19:14 | REP ---
SOFT-TISSUE ULTRASOUND RIGHT UPPER EXTREMITY: 01/07/2019. Clinical history. Question biceps tendon rupture. 5-month history pain and weakness. The right biceps tendon at the humeral head and bicipital groove was scanned with the tendon visible and no evidence of tear, rupture, abnormal fluid collection or increased signal in the tendon. The distal biceps muscle is retracted to the mid humerus region and the distal biceps tendon cannot be readily visualized. This is highly suspicious for biceps tendon rupture. No fluid collection. Impression: 1. Distal biceps tendon disruption and retraction of the biceps muscle to the mid humerus level. The proximal biceps tendon intact. Electronically Signed by Rodriguez Holly MD 01/08/2019 12:00 P
== END ==
LOC: M RAD 10:37
PROVIDERS: ATTEND Family Medicine
DX: S46.211A Strain of muscle, fascia and tendon of other parts of biceps, right arm, initial encounter (principal); E78.2 Mixed hyperlipidemia; X58.XXXA Exposure to other specified factors, initial encounter; Y92.9 Unspecified place or not applicable

== ENCOUNTER → 2019-03-01 | Outpatient (CLI) | payer OTHER ==
[2019-03-01 14:16] LABS: HEMATOCRIT 43.5 % (42.0-52.0); HEMOGLOBIN 13.9 g/dl (13.5-17.5); MEAN CORPUSCULAR HEMOGLOBIN 28.1 pg (27.0-33.0); MEAN CORPUSCULAR VOLUME 87.9 fl (80.0-96.0); PLATELET COUNT, AUTOMATED 372 10^3/uL (150-450); RED BLOOD COUNT 4.95 10^6/uL (4.30-6.10); WHITE BLOOD COUNT 9.1 10^3/uL (4.0-10.0)
[2019-03-01 14:45] LABS: ALBUMIN 4.1 GM/DL (3.2-5.2); ALT/SGPT 23 U/L (12-78); BILIRUBIN,TOTAL 0.3 MG/DL (0.2-1.0); BLOOD UREA NITROGEN 17 MG/DL (7-18); CALCIUM LEVEL 9.2 MG/DL (8.5-10.1); CARBON DIOXIDE LEVEL 27 MEQ/L (21-32); CHLORIDE LEVEL 107 MEQ/L (98-107); CREATININE FOR GFR 0.76 MG/DL (0.70-1.30); GLOMERULAR FILTRATION RATE > 60.0 (>60); GLUCOSE, FASTING 107 MG/DL (70-100); LDH LACTATE DEHYDROGENASE 203 U/L (87-241); POTASSIUM SERUM 4.5 MEQ/L (3.5-5.1); SODIUM LEVEL 140 MEQ/L (136-145); TOTAL PROTEIN 6.7 GM/DL (6.4-8.2)
--- NOTE | 2019-03-02 03:13 | REP ---
Clinical: History of testicular cancer. . Comparison: 03/27/2017 . Technique: PA and lateral. Findings: The mediastinum and cardiac silhouette are normal. The lung santos are clear and without acute consolidation, effusion, or pneumothorax. The skeletal structures are intact and normal. Impression: 1. No acute cardiopulmonary process. Electronically Signed by Jose Mejias MD 03/02/2019 03:05 A
== END ==
LOC: M LAB 13:17
PROVIDERS: ATTEND Nurse Practitioner Women's Health
DX: Z85.47 Personal history of malignant neoplasm of testis (principal)

== ENCOUNTER → 2019-03-22 | Outpatient (CLI) | payer OTHER ==
[~2019-03-22] MED LIST changes: +ISOVUE-370 76% 100ML VIAL (Q9967) As Ordered ONE
--- NOTE | 2019-03-22 11:17 | REP ---
CT UROGRAPHY: Pre- and dual-phase postcontrast imaging. HISTORY: Personal history of malignant neoplasm of the testis. Comparison CT study October 05, 2017. CT CONTRAST DOSE: 100 mL of intravenous Isovue 370. CT FINDINGS: Preliminary digital latin professor radiograph is unremarkable. The lung bases are clear on axial CT images. No focal hepatic lesion is seen on pre- or postcontrast imaging. The spleen is normal in size homogeneous in texture. No pancreatic abnormality is observed. Gallbladder is unremarkable. The kidneys enhance symmetrically and are morphologically intact. The right renal artery is duplicated. No retroperitoneal adenopathy is appreciated. No intra-abdominal mass lesion is seen. Normal appendix is observed retrocecal. Small and large intestinal bowel loops are unremarkable. Seminal vesicles, prostate and urinary bladder are normal in appearance. No inguinal adenopathy is seen. The left spermatic cord is not seen consistent with left-sided orchiectomy. Bone window settings show no bony destructive lesion. IMPRESSION: No evidence of intra-abdominal metastasis or recurrence. Electronically Signed by Tushar Caldera MD 03/22/2019 11:52 A
== END ==
LOC: M RAD 08:32
PROVIDERS: ATTEND Nurse Practitioner Women's Health
DX: Z85.47 Personal history of malignant neoplasm of testis (principal)
CPT/HCPCS: 74178; Q9967

== ENCOUNTER → 2020-03-21 | Outpatient (CLI) | payer OTHER ==
[~2020-03-21] MED LIST changes: -ISOVUE-370 76% 100ML VIAL (Q9967) As Ordered ONE
[2020-03-21 11:39] LABS: CHOLESTEROL RISK RATIO 3.283 (<5)
[2020-03-21 11:42] LABS: MAU/CREAT RATIO 20.5 MCG/MG (0.0-30.0)
[2020-03-21 12:57] LABS: HEMOGLOBIN A1c 6.1 %
== END ==
LOC: M LAB 10:02
PROVIDERS: ATTEND Family Medicine
DX: E11.9 Type 2 diabetes mellitus without complications (principal); E78.2 Mixed hyperlipidemia

== ENCOUNTER → 2020-03-21 | Outpatient (CLI) | payer OTHER ==
[2020-03-21 11:27] LABS: BLOOD UREA NITROGEN 29 MG/DL (7-18); CALCIUM LEVEL 9.5 MG/DL (8.5-10.1); CARBON DIOXIDE LEVEL 29 MEQ/L (21-32); CHLORIDE LEVEL 106 MEQ/L (98-107); CREATININE FOR GFR 0.76 MG/DL (0.70-1.30); GLOMERULAR FILTRATION RATE > 60.0 (>60); GLUCOSE, FASTING 110 MG/DL (70-100); POTASSIUM SERUM 4.4 MEQ/L (3.5-5.1); SODIUM LEVEL 142 MEQ/L (136-145)
[2020-03-21 11:28] LABS: LDH LACTATE DEHYDROGENASE 227 U/L (87-241)
== END ==
LOC: M LAB 09:56
PROVIDERS: ATTEND Nurse Practitioner Women's Health
DX: Z85.47 Personal history of malignant neoplasm of testis (principal)

== ENCOUNTER → 2020-04-04 | Outpatient (CLI) | payer MEDICAID | LOC: M OUTALCOH 07:50 | PROVIDERS: ATTEND Psychiatry & Neurology Addiction Medicine | DX: F10.20 Alcohol dependence, uncomplicated (principal) ==

== ENCOUNTER → 2020-04-24 | Outpatient (RCR) | payer MEDICAID | LOC: M OUTALCOH 04-11 15:43 | PROVIDERS: ATTEND Psychiatry & Neurology Addiction Medicine | DX: F10.20 Alcohol dependence, uncomplicated (principal); F17.200 Nicotine dependence, unspecified, uncomplicated ==

== ENCOUNTER → 2020-05-25 | Outpatient (RCR) | payer MEDICAID | LOC: M OUTALCOH 04-25 14:07 | PROVIDERS: ATTEND Psychiatry & Neurology Addiction Medicine | DX: F10.20 Alcohol dependence, uncomplicated (principal); F17.200 Nicotine dependence, unspecified, uncomplicated ==

== ENCOUNTER 2020-06-21 09:00 | Outpatient (RCR) | payer MEDICAID | END 2020-06-25 | LOC: M OUTALCOH 09:00 | PROVIDERS: ATTEND Psychiatry & Neurology Addiction Medicine | DX: F10.20 Alcohol dependence, uncomplicated (principal); F17.200 Nicotine dependence, unspecified, uncomplicated ==

== ENCOUNTER 2020-07-20 09:30 | Outpatient (RCR) | payer MEDICAID | END 2020-07-25 | LOC: M OUTALCOH 09:30 | PROVIDERS: ATTEND Psychiatry & Neurology Addiction Medicine | DX: F10.20 Alcohol dependence, uncomplicated (principal); F17.200 Nicotine dependence, unspecified, uncomplicated ==

== ENCOUNTER 2020-08-22 12:00 | Outpatient (RCR) | payer MEDICAID | END 2020-08-25 | LOC: M OUTALCOH 12:00 | PROVIDERS: ATTEND Psychiatry & Neurology Addiction Medicine | DX: F10.20 Alcohol dependence, uncomplicated (principal); F17.200 Nicotine dependence, unspecified, uncomplicated ==

== ENCOUNTER → 2020-09-24 | Outpatient (RCR) | payer MEDICAID | LOC: M OUTALCOH 08-30 11:10 | PROVIDERS: ATTEND Psychiatry & Neurology Addiction Medicine | DX: F10.20 Alcohol dependence, uncomplicated (principal); F17.200 Nicotine dependence, unspecified, uncomplicated ==

== ENCOUNTER 2020-10-17 12:00 | Outpatient (RCR) | payer MEDICAID | END 2020-10-25 | LOC: M OUTALCOH 12:00 | PROVIDERS: ATTEND Psychiatry & Neurology Addiction Medicine | DX: F10.20 Alcohol dependence, uncomplicated (principal); F17.200 Nicotine dependence, unspecified, uncomplicated ==

== ENCOUNTER → 2020-11-02 | Outpatient (REF) | payer OTHER ==
[2020-11-02 14:21] LABS: BLOOD UREA NITROGEN 25 MG/DL (7-18); CALCIUM LEVEL 9.3 MG/DL (8.5-10.1); CARBON DIOXIDE LEVEL 30 MEQ/L (21-32); CHLORIDE LEVEL 106 MEQ/L (98-107); CHOLESTEROL LEVEL 216 MG/DL (<200); CHOLESTEROL RISK RATIO 3.176 (<5); CREATININE FOR GFR 0.77 MG/DL (0.70-1.30); GLOMERULAR FILTRATION RATE > 60.0 (>60); GLUCOSE, FASTING 99 MG/DL (70-100); HDL CHOLESTEROL 68 MG/DL (>40); LDL CHOLESTEROL 140 MG/DL (<100); NON-HDL-C 148 MG/DL; POTASSIUM SERUM 4.5 MEQ/L (3.5-5.1); SODIUM LEVEL 141 MEQ/L (136-145); TRIGLYCERIDES LEVEL 42 MG/DL (<150)
[2020-11-02 15:49] LABS: HEMOGLOBIN A1c 6.1 %
== END ==
LOC: M SFHCPLAZ 09:37
PROVIDERS: ATTEND Physician Assistant
DX: E78.2 Mixed hyperlipidemia (principal); E11.9 Type 2 diabetes mellitus without complications

== ENCOUNTER 2020-11-21 09:00 | Outpatient (RCR) | payer MEDICAID | END 2020-11-25 | LOC: M OUTALCOH 09:00 | PROVIDERS: ATTEND Psychiatry & Neurology Psychiatry | DX: F10.20 Alcohol dependence, uncomplicated (principal); F17.200 Nicotine dependence, unspecified, uncomplicated ==

== ENCOUNTER → 2021-03-08 | Outpatient (CLI) | payer OTHER | LOC: M LAB 11:59 | PROVIDERS: ATTEND Nurse Practitioner Women's Health | DX: Z85.47 Personal history of malignant neoplasm of testis (principal) ==

== ENCOUNTER 2021-04-06 16:37 | Emergency (ER) | payer OTHER ==
[~2021-04-06] VITALS: Ht 172.7 cm; Wt 71.0 kg
[2021-04-06 18:17] LABS: BASO % 0.4 % (0.0-1.0); EOS # 0.2 10^3/uL (0.0-0.5); EOS % 2.6 % (0.0-3.0); HEMATOCRIT 44.6 % (42.0-52.0); LYMPH # 2.1 10^3/uL (1.5-5.0); LYMPH % 27.4 % (24.0-44.0); MEAN CORPUSCULAR HEMOGLOBIN 27.8 pg (27.0-33.0); MEAN CORPUSCULAR HGB CONC 31.4 g/dl (32.0-36.5); MEAN CORPUSCULAR VOLUME 88.7 fl (80.0-96.0); MONO # 0.6 10^3/uL (0.0-0.8); MONO % 8.1 % (2.0-8.0); NEUTROPHILS # 4.7 10^3/uL (1.5-8.5); NEUTROPHILS % 61.4 % (36.0-66.0); PLATELET COUNT, AUTOMATED 340 10^3/uL (150-450); RED BLOOD COUNT 5.03 10^6/uL (4.30-6.10); WHITE BLOOD COUNT 7.7 10^3/uL (4.0-10.0)
[2021-04-06 18:35] LABS: BLOOD UREA NITROGEN 17 MG/DL (7-18); CALCIUM LEVEL 8.9 MG/DL (8.5-10.1); CARBON DIOXIDE LEVEL 27 MEQ/L (21-32); CHLORIDE LEVEL 108 MEQ/L (98-107); CREATININE FOR GFR 0.75 MG/DL (0.70-1.30); GLOMERULAR FILTRATION RATE > 60.0 (>60); GLUCOSE, FASTING 106 MG/DL (70-100); POTASSIUM SERUM 4.4 MEQ/L (3.5-5.1); SODIUM LEVEL 141 MEQ/L (136-145)
[2021-04-06] MEDS ORDERED: KETOROLAC 30 MG/ML 1ML VIAL IV ONE (18:45)
[2021-04-06] MEDS ORDERED: LIDOCAINE 5% (LIDODERM) PATCH TD ONE (18:45)
--- NOTE | 2021-04-06 19:18 | REPVR ---
PROCEDURE INFORMATION: Exam: CT Thoracic Spine Without Contrast Exam date and time: 04/06/2021 6:55 PM Age: 45 years old Clinical indication: Pain in thoracic spine; Other: Mid left back pain; Additional info: Mid left back pain, no sherly, HX testicular CA TECHNIQUE: Imaging protocol: Computed tomography images of the thoracic spine without contrast. Radiation optimization: All CT scans at this facility use at least one of these dose optimization techniques: automated exposure control; mA and/or kV adjustment per patient size (includes targeted exams where dose is matched to clinical indication); or iterative reconstruction. COMPARISON: No relevant prior studies available. FINDINGS: Vertebrae: No acute fracture. Normal alignment. Discs/Spinal canal/Neural foramina: No significant disc protrusion. No severe spinal canal stenosis. No significant neural foraminal narrowing. Soft tissues: Unremarkable. IMPRESSION: Unremarkable CT Spine. Electronically signed by: Demarco Medina On 04/06/2021 19:18:34 PM
[2021-04-06] MEDS ORDERED: NAPR-837 PO (20:10)
[2021-04-06] MEDS ORDERED: METH-1165 PO (20:10)
[2021-04-06] MEDS ORDERED: methocarbamoL 750 MG TAB PO ONE (20:10)
[2021-04-06] MEDS ORDERED: ASPE4PAD TOP (20:10)
[2021-04-06 20:15] VITALS: BP 108/73
[2021-04-06] MEDS ORDERED: **NOTE PATIENT COMMENT** MISC XX SCH (21:00)
== END 2021-04-06 20:22 | disposition home or self-care (01) ==
LOC: M ED 16:37
DX: M54.5 Low back pain (principal); E11.9 Type 2 diabetes mellitus without complications; Z85.47 Personal history of malignant neoplasm of testis; F17.200 Nicotine dependence, unspecified, uncomplicated; Z79.84 Long term (current) use of oral hypoglycemic drugs; Z79.899 Other long term (current) drug therapy; Z88.0 Allergy status to penicillin; Z88.8 Allergy status to other drugs, medicaments and biological substances
CPT/HCPCS: 72128; 80048; 85025; 96374; 99283; J1885

== ENCOUNTER → 2021-05-17 | Outpatient (CLI) | payer OTHER ==
[~2021-05-17] MED LIST changes: +ASPE4PAD TOP; +METH-1165 PO; +NAPR-837 PO
[2021-05-17 10:42] LABS: HEMOGLOBIN A1c 6.1 %
[2021-05-17 10:52] LABS: ALT/SGPT 31 U/L (12-78); BILIRUBIN,TOTAL 0.4 MG/DL (0.2-1.0); BLOOD UREA NITROGEN 17 MG/DL (7-18); CALCIUM LEVEL 9.1 MG/DL (8.5-10.1); CARBON DIOXIDE LEVEL 30 MEQ/L (21-32); CHLORIDE LEVEL 106 MEQ/L (98-107); CHOLESTEROL LEVEL 143 MG/DL (<200); CREATININE FOR GFR 0.73 MG/DL (0.70-1.30); GLOMERULAR FILTRATION RATE > 60.0 (>60); GLUCOSE, FASTING 91 MG/DL (70-100); HDL CHOLESTEROL 55 MG/DL (>40); LDL CHOLESTEROL 76 MG/DL (<100); NON-HDL-C 88 MG/DL; POTASSIUM SERUM 4.5 MEQ/L (3.5-5.1); SODIUM LEVEL 141 MEQ/L (136-145); TOTAL PROTEIN 6.9 GM/DL (6.4-8.2); TRIGLYCERIDES LEVEL 62 MG/DL (<150)
[2021-05-17 10:54] LABS: MALB URINE SIEMENS 8.7 MG/L; MAU/CREAT RATIO 6.6 MCG/MG (0.0-30.0)
== END ==
LOC: M PLALAB 08:06
PROVIDERS: ATTEND Physician Assistant
DX: E11.9 Type 2 diabetes mellitus without complications (principal)

== ENCOUNTER 2021-09-14 17:17 | Emergency (ER) | payer OTHER ==
[~2021-09-14] VITALS: Ht 172.7 cm; Wt 73.3 kg
[2021-09-14 17:18] VITALS: BP 137/96
--- OUTSIDE RECORDS SUMMARY | 2021-09-14 17:24 | CCD ---
Author Author [facility] Organization [facility] Address Unknown Phone Unavailable Support Name Relationship Address Phone [employer] Next Of Kin [address] [place] [address] LON[place]ORN Next Of Kin [address] [place] [address] [employer] Next Of Kin [facility] [place] [id number] [place] Next Of Kin [facility] [place] [address] TULLYS Next Of Kin [address] [place] [address] PEDRO HOLLOWAY Next Of Kin [place] [id number] [place] [address] REDROB [place] Of Kin [address] [address] [place] [id number] [place] Next Of Kin [id number] [place] [address] [place] [address] [employer] [address] [place] [address] Unavailable [place] [address] Unavailable JEWEL HOLLOWAY Next Of Kin [address] [place] [address] UE Next Of Kin Unknown Unavailable KEYUR HOLLOWAY Next Of Kin [address] [place] [address] [place] [address] JEWEL JOYA Next Of Kin [address] [place] [address] Keyur Holloway ECON [address] [place] [address] Unavailable Re-disclosure Warning The records that you are about to access may contain information from federally-assisted alcohol or drug abuse programs. If such information is present, then the following federally mandated warning applies: This information has been disclosed to you from records protected by federal confidentiality rules (42 CFR part 2). The federal rules prohibit you from making any further disclosure of this information unless further disclosure is expressly permitted by the written consent of the person to whom it pertains or as otherwise permitted by 42 CFR part 2. A general authorization for the release of medical or other information is NOT sufficient for this purpose. The Federal rules restrict any use of the information to criminally investigate or prosecute any alcohol or drug abuse patient.The records that you are about to access may contain highly sensitive health information, the redisclosure of which is protected by Article 27-F of the [facility] Public Health law. If you continue you may have access to information: Regarding HIV / AIDS; Provided by facilities licensed or operated by the [facility] Office of Mental Health; or Provided by the [facility] Office for People With Developmental Disabilities. If such information is present, then the following [facility] mandated warning applies: This information has been disclosed to you from confidential records which are protected by state law. State law prohibits you from making any further disclosure of this information without the specific written consent of the person to whom it pertains, or as otherwise permitted by law. Any unauthorized further disclosure in violation of state law may result in a fine or fdc sentence or both. A general authorization for the release of medical or other information is NOT sufficient authorization for further disc losure. Family History Family Member Name Family Member Gender Family Member Status Date o f Status Description Data Source(s) Unknown Female Problem [facility]ENT ([facility]) Unknown Female Problem MEDENT ([facility]) Encounters Encounter Providers Location Date Indications Data Source(s ) [place] [address] [facility] [address] 05/17/2021 12:00:00 AM EDT eCW1 ([facility]) Unknown [address] [facility] [address] 05/02/2021 12:00:00 AM EDT eCW1 ([facility]) [place] [address] [facility] [address] 04/03/2021 12:00:00 AM EDT eCW1 ([facility]) Unknown [address] [facility] [address] 12/04/2020 12:00:00 AM EST eCW1 ([facility]) [place] [address] [facility] [address] 11/02/2020 12:00:00 AM EST eCW1 ([facility]) Unknown [address] [facility] [address] 10/11/2020 12:00:00 AM EST eCW1 ([facility]) [place] [address] [facility] [address] 10/10/2020 12:00:00 AM EST eCW1 ([facility]) Unknown [address] [facility] [address] 10/10/2020 12:00:00 AM EST eCW1 ([facility]) Unknown [address] [facility] [address] 09/10/2020 12:00:00 AM EST eCW1 ([facility]) Immunizations Vaccine Date Status Description Data Source(s) COVID-19 VACCINE Pfizer 04/09/2021 12:00:00 AM EDT completed [facility] Vaccine Series Complete: YESThis Data wa s Submitted to [facility] Via [employer]. COVID-19 VACC, MRNA(PFIZER)/PF 03/19/2021 12:00:00 AM EDT completed [facility] COVID-19 VACCINE Pfizer 03/19/2021 12:00:00 AM EDT completed [facility] Vaccine Series Complete: NOThis Data was Submitted to [facility] Via [employer]. influenza, recombinant, quadrIvalent,injectable, prese rvative free 11/02/2020 09:33:00 AM EST completed eCW1 ([facility]) influenza, recombinant, quadrIvalent,injectable, prese rvative free 11/02/2020 09:33:00 AM EST completed eCW1 ([facility]) influenza, recombinant, quadrIvalent,injectable, prese rvative free 11/02/2020 09:33:00 AM EST completed eCW1 ([facility]) influenza, recombinant, quadrIvalent,injectable, prese rvative free 11/02/2020 09:33:00 AM EST completed eCW1 ([facility]) influenza, recombinant, quadrIvalent,injectable, prese rvative free 11/02/2020 09:33:00 AM EST completed eCW1 ([facility]) Medications Medication Brand Name Start Date Product Form Dose Route Admi nistrative Instructions Pharmacy Instructions Status Indications Reaction Description Data Source(s) 500 mg 04/07/2021 12:00:00 AM EDT tablet 30 TAKE ONE TABLET BY MOUTH TWICE A DAY WITH FOOD TAKE ONE TABLET BY MOUTH TWICE A DAY WITH FOOD SOLD: 04/07/2021 [facility] 750 mg 04/07/2021 12:00:00 AM EDT tablet 30 TAKE ONE TABLET BY MOUTH THREE TIMES A DAY TAKE ONE TABLET BY MOUTH THREE TIMES A DAY SOLD: 04/07/2021 [facility] atorvastatin 40 MG Oral Tablet ATORVASTATIN CALCIUM 12/04/2020 1 2:00:00 AM EST tablet 30 TAKE ONE TABLET BY MOUTH EVERY E VENING TAKE ONE TABLET BY MOUTH EVERY EVENING SOLD: 03/12/2021 [facility] atorvastatin 40 MG Oral Tablet ATORVASTATIN CALCIUM 12/04/2020 1 2:00:00 AM EST tablet 30 TAKE ONE TABLET BY MOUTH EVERY E VENING TAKE ONE TABLET BY MOUTH EVERY EVENING SOLD: 06/25/2021 [facility] atorvastatin 40 MG Oral Tablet ATORVASTATIN CALCIUM 12/04/2020 1 2:00:00 AM EST tablet 30 TAKE ONE TABLET BY MOUTH EVERY E VENING TAKE ONE TABLET BY MOUTH EVERY EVENING SOLD: 12/19/2020 [facility] atorvastatin 40 MG Oral Tablet ATORVASTATIN CALCIUM 12/04/2020 1 2:00:00 AM EST tablet 30 TAKE ONE TABLET BY MOUTH EVERY E VENING TAKE ONE TABLET BY MOUTH EVERY EVENING SOLD: 05/17/2021 [facility] atorvastatin 40 MG Oral Tablet ATORVASTATIN CALCIUM 12/04/2020 1 2:00:00 AM EST tablet 30 TAKE ONE TABLET BY MOUTH EVERY E VENING TAKE ONE TABLET BY MOUTH EVERY EVENING SOLD: 04/10/2021 [facility] atorvastatin 40 MG Oral Tablet ATORVASTATIN CALCIUM 12/04/2020 1 2:00:00 AM EST tablet 30 TAKE ONE TABLET BY MOUTH EVERY E VENING TAKE ONE TABLET BY MOUTH EVERY EVENING SOLD: 02/05/2021 [facility] atorvastatin 20 MG Oral Tablet ATORVASTATIN CALCIUM 10/12/2020 1 2:00:00 AM EST tablet 90 TAKE 1 TABLET BY MOUTH ONCE A DA Y IN THE EVENING TAKE 1 TABLET BY MOUTH ONCE A DAY IN THE EVENING SOLD: 10/16/2020 [facility] doxycycline hyclate 100 MG Oral Capsule Doxycycline Hy clate 100 MG Doxycycline Hyclate 100 MG 10/10/2020 12:00:00 AM EST 1.0 {capsule} active Doxycycline Hyclate 100 MG eCW1 ([facility]) doxycycline hyclate 100 MG Oral Capsule Doxycycline Hy clate 100 MG Doxycycline Hyclate 100 MG 10/10/2020 12:00:00 AM EST 1.0 {capsule} suspended Doxycycline Hyclate 100 MG eCW1 ([facility]) doxycycline hyclate 100 MG Oral Capsule Doxycycline Hy clate 100 MG Doxycycline Hyclate 100 MG 10/10/2020 12:00:00 AM EST 1.0 {capsule} suspended Doxycycline Hyclate 100 MG eCW1 ([facility]) doxycycline hyclate 100 MG Oral Capsule Doxycycline Hy clate 100 MG Doxycycline Hyclate 100 MG 10/10/2020 12:00:00 AM EST 1.0 {capsule} suspended Doxycycline Hyclate 100 MG eCW1 ([facility]) doxycycline hyclate 100 MG Oral Capsule Doxycycline Hy clate 100 MG Doxycycline Hyclate 100 MG 10/10/2020 12:00:00 AM EST 1.0 {capsule} active Doxycycline Hyclate 100 MG eCW1 ([facility]) doxycycline hyclate 100 MG Oral Capsule DOXYCYCLINE HYCLATE 10/10/2020 12:00:00 AM EST capsule 14 TAKE ONE CAPSULE BY MOUTH TW ICE A DAY FOR 7 DAYS TAKE ONE CAPSULE BY MOUTH TWICE A DAY FOR 7 DAYS SOLD: 10/10/2020 [facility] doxycycline hyclate 100 MG Oral Capsule Doxycycline Hy clate 100 MG Doxycycline Hyclate 100 MG 10/10/2020 12:00:00 AM EST 1.0 {capsule} active Doxycycline Hyclate 100 MG eCW1 ([facility]) doxycycline hyclate 100 MG Oral Capsule Doxycycline Hy clate 100 MG Doxycycline Hyclate 100 MG 10/10/2020 12:00:00 AM EST 1.0 {capsule} suspended Doxycycline Hyclate 100 MG eCW1 ([facility]) doxycycline hyclate 100 MG Oral Capsule Doxycycline Hy clate 100 MG Doxycycline Hyclate 100 MG 10/10/2020 12:00:00 AM EST 1.0 {capsule} suspended Doxycycline Hyclate 100 MG eCW1 ([facility]) Insurance Providers Payer name Policy type / Coverage type Policy ID Covered libertarian ID Covered libertarian's relationship to garcia Policy Garcia Plan Information [facility] Community Plan Commercial [id number] Self [facility] Community Plan Medigap Part B [id number] Self [id number] [facility] Community Plan Medigap Part B [id number] Self [id number] [facility] [id number] SP [id number] [facility] Community Plan Commercial [id number] Self [id number] [facility] [id number] SP [id number] [facility] Community Plan Commercial [id number] Self [id number] [facility] [id number] SP [id number] [facility] [id number] SP [id number] ANSI-Medicaid [id number] ANSI-Medicaid [id number] ANSI-Medicaid [id number] ANSI-Medicaid [id number] ANSI-Medicaid [id number] ANSI-Medicaid [id number] [facility] [id number] ANSI-Medicaid [id number] ANSI-Medicaid [id number] ANSI-Medicaid [id number] ANSI-Medicaid [id number] ANSI-Medicaid [id number] ANSI-Medicaid [id number] ANSI-Medicaid [id number] ANSI-Medicaid [id number] ANSI-Medicaid [id number] ANSI-Medicaid [id number] [employer] SP ANSI-Medicaid [id number] ANSI-Medicaid [id number] [employer] [id number] SP [id number] [facility] [id number] SP [id number] [facility]) O [id number] S [id number] MEDICAID [id number] SP [id number] SELF PAY UNAVAILABLE UNAVAILA BLE [employer] MCDO [id number] SP [id number] [employer] COMMUNITY PLAN MCDO [id number] SP [id number] [facility] [id number] SP [id number] [employer] [facility]O [id number] SP [id number] ANSI-Medicaid [id number] [facility]-Medicaid [id number] [facility]-Medicaid [id number] [facility]-Medicaid [id number] [facility] [id number] Problems, Conditions, and Diagnoses Code Display Name Description Problem Type Effective Dates Data Source(s) N48.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 Problem 10/10/2020 12:00:0 0 AM EST eCW1 ([facility]) Surgeries/Procedures Procedure Description Date Indications Data Source(s) Immunization: Flublok Quadrivalent (18 years & older) 0.5mL IM (Influenza) 11/02/2020 12:00:00 AM EST eCW1 ([facility]) Results ID Date Data Source [id number] 05/17/2021 12:00:00 AM EDT eCW1 ([facility]) Name Value Range Interpretation Code Description Data Sowmya rce(s) Supporting Document(s) Microalbumin/Creatinine [Mass Ratio] in Urine 131.0 CREATININE, URINE eCW1 ([facility]) Albumin/Creatinine [Mass Ratio] in Urine 8.7 MALB URINE SIEMENS eCW1 ([facility]) Microalbumin/Creatinine [Ratio] in Urine 6.6 0.0-30.0 CLYDE/CREAT RATIO eCW1 ([facility]) ID Date Data Source LIPID PANEL (CARDIAC RISK) 05/17/2021 12:00:00 AM EDT eCW1 ( [facility]) Name Value Range Interpretation Code Description Data Sowmya rce(s) Supporting Document(s) Triglyceride [Mass/volume] in Serum or Plasma by calculation 62 <150 TRIGLYCERIDES LEVEL eCW1 ([facility]) Cholesterol in LDL [Mass/volume] in Serum or Plasma by calculation 76 <100 LDL CHOLESTEROL eCW1 ([facility]) Cholesterol [Moles/volume] in Serum or Plasma 143 <200 CHOLESTEROL LEVEL eCW1 ([facility]) Cholesterol in HDL [Moles/volume] in Serum or Plasma 55 >40 HDL CHOLESTEROL eCW1 ([facility]) 2.600 <5 CHOLESTEROL RISK RATIO eCW1 ([facility]) 88 NON-HDL-C eCW1 ([facility]) ID Date Data Source [id number] 05/17/2021 12:00:00 AM EDT eCW1 ([facility]) Name Value Range Interpretation Code Description Data Sowmya rce(s) Supporting Document(s) Hemoglobin A1c/Hemoglobin.total in Blood 6.1 HEMOGLOBIN A1c eCW1 ([facility]) ID Date Data Source Comprehensive Metabolic Profile (CMP) 05/17/2021 12:00:00 AM EDT eCW1 ([facility]) Name Value Range Interpretation Code Description Data Sowmya rce(s) Supporting Document(s) 91 70-100 GLUCOSE, FASTING eCW1 ([facility]) 17 7-18 BLOOD UREA NITROGEN eCW1 ([facility]) 0.73 0.70-1.30 CREATININE FOR GFR eCW1 ([facility]) 4.5 3.5-5.1 POTASSIUM SERUM eCW1 ([facility]) > 60.0 >60 GLOMERULAR FILTRATION RATE eCW 1 ([facility]) 141 136-145 SODIUM LEVEL eCW1 ([facility]) 9.1 8.5-10.1 CALCIUM LEVEL eCW1 ([facility]) 30 21-32 CARBON DIOXIDE LEVEL eCW1 ([facility]) 106 98-107 CHLORIDE LEVEL eCW1 ([facility]) 45 45-117 ALKALINE PHOSPHATASE eCW1 ([facility]) 20 7-37 AST/SGOT eCW1 ([facility]) 31 12-78 ALT/SGPT eCW1 ([facility]) 4.0 3.2-5.2 ALBUMIN eCW1 ([facility]) 6.9 6.4-8.2 TOTAL PROTEIN eCW1 ([facility]) 0.4 0.2-1.0 BILIRUBIN,TOTAL eCW1 ([facility]) 1.4 ALBUMIN/GLOBULIN RATIO eCW1 ([facility]) Procedure Social History Code Duration Value Status Description Data Source(s ) Smoking 05/17/2021 12:00:00 AM EDT Current Smoker completed Curre nt Smoker eCW1 ([facility]) Smoking 04/03/2021 12:00:00 AM EDT Current Smoker completed Curre nt Smoker eCW1 ([facility]) Smoking 04/03/2021 12:00:00 AM EDT Current Smoker completed Curre nt Smoker eCW1 ([facility]) Smoking 11/02/2020 12:00:00 AM EST Current Smoker completed Curre nt Smoker eCW1 ([facility]) Smoking 11/02/2020 12:00:00 AM EST Current Smoker completed Curre nt Smoker eCW1 ([facility]) Smoking 10/10/2020 12:00:00 AM EST Current Smoker completed Curre nt Smoker eCW1 ([facility]) Smoking 10/10/2020 12:00:00 AM EST Current Smoker completed Curre nt Smoker eCW1 ([facility]) Smoking 10/10/2020 12:00:00 AM EST Current Smoker completed Curre nt Smoker eCW1 ([facility]) Vital Signs ID Date Data Source UNK Name Value Range Interpretation Code Description Data Source(s) Respiratory rate 18 /min 18 /min eCW1 ([facility]) Body temperature 97.5 [degF] 97.5 [degF] eCW1 ( [facility]) Body weight 157.4 [lb_av] 157.4 [lb_av] eCW1 ([facility]) Body mass index (BMI) [Ratio] 24.65 kg/m2 24.65 kg/m2 eCW1 ([facility]) Systolic blood pressure 122 mm[Hg] 122 mm[Hg] e CW1 ([facility]) Heart rate 74 /min 74 /min eCW1 ([facility]) Body height 67 [in_i] 67 [in_i] eCW1 ([facility]) Diastolic blood pressure 76 mm[Hg] 76 mm[Hg] eCW1 ([facility]) Body weight 155 [lb_av] 155 [lb_av] eCW1 [facility] Body height 67 [in_i] 67 [in_i] eCW1 ([facility]) Body mass index (BMI) [Ratio] 24.27 kg/m2 24.27 kg/m2 eCW1 ([facility]) Heart rate 93 /min 93 /min eCW1 ([facility]) Respiratory rate 18 /min 18 /min eCW1 ([facility]) Body temperature 96.9 [degF] 96.9 [degF] eCW1 ( [facility]) Systolic blood pressure 124 mm[Hg] 124 mm[Hg] e CW1 ([facility]) Diastolic blood pressure 76 mm[Hg] 76 mm[Hg] eCW1 ([facility]) Body weight 152 [lb_av] 152 [lb_av] eCW1 ([facility] Body height 67 [in_i] 67 [in_i] eCW1 ([facility]) Body mass index (BMI) [Ratio] 23.80 kg/m2 23.80 kg/m2 eCW1 ([facility]) Heart rate 113 /min 113 /min eCW1 ([facility]) Respiratory rate 20 /min 20 /min eCW1 ([facility]) Body temperature 96 [degF] 96 [degF] eCW1 ([facility]) Systolic blood pressure 120 mm[Hg] 120 mm[Hg] e CW1 ([facility]) Diastolic blood pressure 62 mm[Hg] 62 mm[Hg] eCW1 ([facility]) Body weight 156 [lb_av] 156 [lb_av] eCW1 ([facility]) Body height 67 [in_i] 67 [in_i] eCW1 ([facility]) Body mass index (BMI) [Ratio] 24.43 kg/m2 24.43 kg/m2 eCW1 ([facility]) Heart rate 96 /min 96 /min eCW1 ([facility]) Respiratory rate 18 /min 18 /min eCW1 ([facility]) Body temperature 18 [degF] 18 [degF] eCW1 ([facility]) Systolic blood pressure 112 mm[Hg] 112 mm[Hg] e CW1 ([facility]) Diastolic blood pressure 70 mm[Hg] 70 mm[Hg] eCW1 ([facility]) Patient Treatment Plan of Care Planned Activity Planned Date Details Description Data Source (s) doxycycline hyclate 100 MG Oral Capsule 10/10/2020 12:00:00 AM EST eCW1 ([facility]) doxycycline hyclate 100 MG Oral Capsule 10/10/2020 12:00:00 AM EST eCW1 ([facility]) doxycycline hyclate 100 MG Oral Capsule 10/10/2020 12:00:00 AM EST eCW1 ([facility])
[2021-09-14] MEDS ORDERED: ASPI81CH33 PO (17:25)
[2021-09-14] MEDS ORDERED: ATOR40TA75 (17:25)
--- NOTE | 2021-09-14 18:23 | REP ---
INDICATION: puncture COMPARISON: None. TECHNIQUE: AP, lateral, bilateral oblique views right hand. FINDINGS: Limited evaluation demonstrates no obvious acute fracture or dislocation. No obvious subcutaneous emphysema or foreign body. IMPRESSION: No obvious injury by radiographic evaluation. <Electronically signed by Jose Mejias > 09/14/21 0543
[2021-09-14] MEDS ORDERED: NORCO, ANEXSIA 5/325MG TABLET (HYDROcodone/ACETAMINOPHEN) PO ONE (19:20)
[2021-09-14] MEDS ORDERED: CEPHALEXIN 500 MG CAP PO ONE (19:20)
--- OUTSIDE RECORDS SUMMARY | 2021-09-14 19:37 | CCD ---
Author Author [facility] Organization [facility] Address Unknown Phone Unavailable Support Name Relationship Address Phone [employer] Next Of Kin [place] [address] LONGHORN Next Of Kin [place] [address] [employer] Next Of Kin [facility] [place] [id number] [place] Next Of Kin [facility] [place] [address] TULLYS Next Of Kin [address] [place] [address] PEDRO HOLLOWAY Next Of Kin [place] [phone] [place] [address] REDROB Next Of Kin [address] [address] SUKUMAR H[place]INS [place] [id number] [place] Next Of Kin [id number] [address] [place] [address] [place] [address] TGI [place] [address] [place] [address] [place] [address] Unavailable JEWEL HOLLOWAY Next Of Kin [address] [place] [address] UE Next Of Kin Unknown Unavailable KEYUR HOLLOWAY Next Of Kin [address] [place] [address] [place] [address] JEWEL JOYA Next Of Kin [address] [place] [address] Keyur Holloway ECON [address] [place] [address] Unavailable Re-disclosure Warning The records that you [...] is protected by Article 27-F of the [facility] Public Health law. If you continue you may have access to information: Regarding HIV / AIDS; Provided by facilities licensed or operated by the [facility] Office of Mental Health; or Provided by the [facility] Office for People With Developmental Disabilities. If such information is present, then the following [facility] mandated warning applies: This information has [...] law may result in a fine or nursing home sentence or both. A general authorization for [...] Date Indications Data Source(s ) [place] [address] [facility] [address] 05/17/2021 12:00:00 AM EDT eCW1 [facility] [place] [address] [facility] [address] 05/02/2021 12:00:00 AM EDT eCW1 [facility] [place] [address] [facility] [address] 04/03/2021 12:00:00 AM EDT eCW1 [facility]) [place] [address] [facility] [address] 12/04/2020 12:00:00 AM EST eCW1 ([facility] [place] [address] [facility] [address] 11/02/2020 12:00:00 AM EST eCW1 ([facility]) [place] [address] [facility] [address] 10/11/2020 12:00:00 AM EST eCW1 ([facility]) [place] [address] [facility] [address] 10/10/2020 12:00:00 AM EST eCW1 ([facility]) Unknown [address] [facility] [address] 10/10/2020 12:00:00 AM EST eCW1 ([facility]) [place] [address] [facility] [address] 09/10/2020 12:00:00 AM EST eCW1 [facility]) Immunizations Vaccine Date Status Description Data Source(s) COVID-19 VACCINE Pfizer 04/09/2021 12:00:00 AM EDT completed [facility] Vaccine Series Complete: YESThis Data wa s Submitted to [facility] Via [employer] COVID-19 VACC, MRNA(PFIZER)/PF 03/19/2021 12:00:00 AM EDT completed [facility] COVID-19 VACCINE Pfizer 03/19/2021 12:00:00 AM EDT completed [facility] Vaccine Series Complete: NOThis Data was Submitted to [facility] Via [employer] influenza, recombinant, quadrIvalent,injectable, prese rvative free 11/02/2020 09:33:00 AM EST completed eCW1 ([facility]) influenza, recombinant, quadrIvalent,injectable, prese rvative free 11/02/2020 09:33:00 AM EST completed eCW1 ([facility]) influenza, recombinant, quadrIvalent,injectable, prese rvative free 11/02/2020 09:33:00 AM EST completed eCW1 ([facility]) influenza, recombinant, quadrIvalent,injectable, prese rvative free 11/02/2020 09:33:00 AM EST completed eCW1 ([facility]) influenza, recombinant, quadrIvalent,injectable, prese rvative free 11/02/2020 09:33:00 AM EST completed eCW1 ([facility]) Medications Medication Brand Name Start Date Product [...] {capsule} active Doxycycline Hyclate 100 MG eCW1 ([facility]) doxycycline hyclate 100 MG Oral Capsule Doxycycline Hy clate 100 MG Doxycycline Hyclate 100 MG 10/10/2020 12:00:00 AM EST 1.0 {capsule} suspended Doxycycline Hyclate 100 MG eCW1 ([facility]) doxycycline hyclate 100 MG Oral Capsule Doxycycline Hy clate 100 MG Doxycycline Hyclate 100 MG 10/10/2020 12:00:00 AM EST 1.0 {capsule} suspended Doxycycline Hyclate 100 MG eCW1 ([facility]) doxycycline hyclate 100 MG Oral Capsule Doxycycline Hy clate 100 MG Doxycycline Hyclate 100 MG 10/10/2020 12:00:00 AM EST 1.0 {capsule} suspended Doxycycline Hyclate 100 MG eCW1 ([facility]) doxycycline hyclate 100 MG Oral Capsule Doxycycline Hy clate 100 MG Doxycycline Hyclate 100 MG 10/10/2020 12:00:00 AM EST 1.0 {capsule} active Doxycycline Hyclate 100 MG eCW1 ([facility]) doxycycline hyclate 100 MG Oral Capsule DOXYCYCLINE [...] {capsule} active Doxycycline Hyclate 100 MG eCW1 ([facility]) doxycycline hyclate 100 MG Oral Capsule Doxycycline Hy clate 100 MG Doxycycline Hyclate 100 MG 10/10/2020 12:00:00 AM EST 1.0 {capsule} suspended Doxycycline Hyclate 100 MG eCW1 ([facility]) doxycycline hyclate 100 MG Oral Capsule Doxycycline Hy clate 100 MG Doxycycline Hyclate 100 MG 10/10/2020 12:00:00 AM EST 1.0 {capsule} suspended Doxycycline Hyclate 100 MG eCW1 ([facility]) Insurance Providers Payer name Policy type / Coverage type Policy ID Covered democrat ID Covered democrat's relationship to garcia Policy Garcia Plan Information [facility] Community Plan Commercial [id number] Self [facility] Community Plan Medigap Part B [id number] Self [id number] [facility] Community Plan Medigap Part B [id number] Self [id number] [facility] COMMUNITY PLAN [facility] [id number] SP [id number] [facility] Community Plan Commercial [id number] Self [id number] [facility] COMMUNITY PLAN MCDO [id number] SP [id number] [facility] Community Plan Commercial [id number] Self [id number] [facility] COMMUNITY PLAN MCDO [id number] SP [id number] [facility] COMMUNITY PLAN [facility] [id number] SP [id number] ANSI-Medicaid [id number] ANSI-Medicaid [id number] ANSI-Medicaid [id number] ANSI-Medicaid [id number] ANSI-Medicaid [id number] ANSI-Medicaid [id number] [facility] [id number] ANSI-Medicaid [id number] ANSI-Medicaid [id number] ANSI-Medicaid [id number] ANSI-Medicaid [id number] ANSI-Medicaid [id number] ANSI-Medicaid [id number] ANSI-Medicaid [id number] ANSI-Medicaid [id number] ANSI-Medicaid [id number] ANSI-Medicaid [id number] [employer] SP ANSI-Medicaid [id number] ANSI-Medicaid [id number] [employer] [id number] SP [id number] [facility] [id number] SP [id number] [facility]) O [id number] S [id number] MEDICAID [id number] SP [id number] SELF PAY UNAVAILABLE UNAVAILA BLE [employer] COMMUNITY PLAN MCDO [id number] SP [id number] UNHC COMMUNITY PLAN MCDO [id number] SP [id number] [facility] [id number] SP [id number] [employer] COMMUNITY PLAN MCDO [id number] SP [id number] ANSI-Medicaid [id number] [facility]-Medicaid [id number] [facility]-Medicaid [id number] [facility]-Medicaid [id number] [facility] [id number] Problems, Conditions, and Diagnoses Code Display Name Description Problem Type Effective Dates Data Source(s) N48.21 231854 Furuncle of penis Problem 10/10/2020 12:00:0 0 AM EST eCW1 ([facility]) Surgeries/Procedures Procedure Description Date Indications Data Source(s) Immunization: Flublok Quadrivalent (18 years & older) 0.5mL IM (Influenza) 11/02/2020 12:00:00 AM EST eCW1 ([facility]) Results ID Date Data Source [id number] 05/17/2021 12:00:00 AM EDT eCW1 ([facility]) Name Value Range Interpretation Code Description Data Sowmya rce(s) Supporting Document(s) Microalbumin/Creatinine [Mass Ratio] in Urine 131.0 CREATININE, URINE eCW1 ([facility]) Albumin/Creatinine [Mass Ratio] in Urine 8.7 MALB URINE SIEMENS eCW1 ([facility]) Microalbumin/Creatinine [Ratio] in Urine 6.6 0.0-30.0 CLYDE/CREAT RATIO eCW1 ([facility]) ID Date Data Source LIPID PANEL (CARDIAC RISK) 05/17/2021 12:00:00 AM EDT eCW1 ( [facility]) Name Value Range Interpretation Code Description Data Sowmya rce(s) Supporting Document(s) Triglyceride [Mass/volume] in Serum or Plasma by calculation 62 <150 TRIGLYCERIDES LEVEL eCW1 ([facility]) Cholesterol in LDL [Mass/volume] in Serum or Plasma by calculation 76 <100 LDL CHOLESTEROL eCW1 ([facility]) Cholesterol [Moles/volume] in Serum or Plasma 143 <200 CHOLESTEROL LEVEL eCW1 ([facility]) Cholesterol in HDL [Moles/volume] in Serum or Plasma 55 >40 HDL CHOLESTEROL eCW1 ([facility]) 2.600 <5 CHOLESTEROL RISK RATIO eCW1 ([facility]) 88 NON-HDL-C eCW1 ([facility]) ID Date Data Source [id number] 05/17/2021 12:00:00 AM EDT eCW1 ([facility]) Name Value Range Interpretation Code Description Data Sowmya rce(s) Supporting Document(s) Hemoglobin A1c/Hemoglobin.total in Blood 6.1 HEMOGLOBIN A1c eCW1 ([facility]) ID Date Data Source Comprehensive Metabolic Profile (CMP) 05/17/2021 12:00:00 AM EDT eCW1 ([facility]) Name Value Range Interpretation Code Description Data Sowmya rce(s) Supporting Document(s) 91 70-100 GLUCOSE, FASTING eCW1 ([facility]) 17 7-18 BLOOD UREA NITROGEN eCW1 ([facility]) 0.73 0.70-1.30 CREATININE FOR GFR eCW1 ([facility]) 4.5 3.5-5.1 POTASSIUM SERUM eCW1 ([facility]) > 60.0 >60 GLOMERULAR FILTRATION RATE eCW 1 ([facility]) 141 136-145 SODIUM LEVEL eCW1 ([facility]) 9.1 8.5-10.1 CALCIUM LEVEL eCW1 ([facility]) 30 21-32 CARBON DIOXIDE LEVEL eCW1 ([facility]) 106 98-107 CHLORIDE LEVEL eCW1 ([facility]) 45 45-117 ALKALINE PHOSPHATASE eCW1 ([facility]) 20 7-37 AST/SGOT eCW1 ([facility]) 31 12-78 ALT/SGPT eCW1 ([facility]) 4.0 3.2-5.2 ALBUMIN eCW1 ([facility]) 6.9 6.4-8.2 TOTAL PROTEIN eCW1 ([facility]) 0.4 0.2-1.0 BILIRUBIN,TOTAL eCW1 ([facility]) 1.4 ALBUMIN/GLOBULIN RATIO eCW1 ([facility]) Procedure Social History Code Duration Value Status Description Data Source(s ) Smoking 05/17/2021 12:00:00 AM EDT Current Smoker completed Curre nt Smoker eCW1 ([facility]) Smoking 04/03/2021 12:00:00 AM EDT Current Smoker completed Curre nt Smoker eCW1 ([facility]) Smoking 04/03/2021 12:00:00 AM EDT Current Smoker completed Curre nt Smoker eCW1 ([facility]) Smoking 11/02/2020 12:00:00 AM EST Current Smoker completed Curre nt Smoker eCW1 ([facility]) Smoking 11/02/2020 12:00:00 AM EST Current Smoker completed Curre nt Smoker eCW1 ([facility]) Smoking 10/10/2020 12:00:00 AM EST Current Smoker completed Curre nt Smoker eCW1 ([facility]) Smoking 10/10/2020 12:00:00 AM EST Current Smoker completed Curre nt Smoker eCW1 ([facility]) Smoking 10/10/2020 12:00:00 AM EST Current Smoker completed Curre nt Smoker eCW1 ([facility]) Vital Signs ID Date Data Source UNK Name Value Range Interpretation Code Description Data Source(s) Body weight 157.4 [lb_av] 157.4 [lb_av] eCW1 ([facility]) Body height 67 [in_i] 67 [in_i] eCW1 ([facility]) Body mass index (BMI) [Ratio] 24.65 kg/m2 24.65 kg/m2 eCW1 ([facility]) Respiratory rate 18 /min 18 /min eCW1 ([facility]) Systolic blood pressure 122 mm[Hg] 122 mm[Hg] e CW1 ([facility]) Body temperature 97.5 [degF] 97.5 [degF] eCW1 ( [facility]) Heart rate 74 /min 74 /min eCW1 ([facility]) Diastolic blood pressure 76 mm[Hg] 76 mm[Hg] eCW1 ([facility]) Body weight 155 [lb_av] 155 [lb_av] eCW1 ([facility]) Body height 67 [in_i] 67 [in_i] eCW1 ([facility]) Body mass index (BMI) [Ratio] 24.27 kg/m2 24.27 kg/m2 eCW1 ([facility]) Heart rate 93 /min 93 /min eCW1 ([facility]) Respiratory rate 18 /min 18 /min eCW1 ([facility]) Body temperature 96.9 [degF] 96.9 [degF] eCW1 ( [facility]) Systolic blood pressure 124 mm[Hg] 124 mm[Hg] e CW1 ([facility]) Diastolic blood pressure 76 mm[Hg] 76 mm[Hg] eCW1 ([facility]) Body weight 152 [lb_av] 152 [lb_av] eCW1 ([facility]) Body height 67 [in_i] 67 [in_i] eCW1 ([facility]) Body mass index (BMI) [Ratio] 23.80 kg/m2 23.80 kg/m2 eCW1 ([facility]) Heart rate 113 /min 113 /min eCW1 ([facility]) Respiratory rate 20 /min 20 /min eCW1 ([facility]) Body temperature 96 [degF] 96 [degF] eCW1 ([facility]) Systolic blood pressure 120 mm[Hg] 120 mm[Hg] e CW1 ([facility]) Diastolic blood pressure 62 mm[Hg] 62 mm[Hg] eCW1 ([facility]) Body weight 156 [lb_av] 156 [lb_av] eCW1 ([facility]) Body height 67 [in_i] 67 [in_i] eCW1 ([facility]) Body mass index (BMI) [Ratio] 24.43 kg/m2 24.43 kg/m2 eCW1 ([facility]) Heart rate 96 /min 96 /min eCW1 ([facility]) Respiratory rate 18 /min 18 /min eCW1 ([facility]) Body temperature 18 [degF] 18 [degF] eCW1 ([facility]) Systolic blood pressure 112 mm[Hg] 112 mm[Hg] e CW1 ([facility]) Diastolic blood pressure 70 mm[Hg] 70 mm[Hg] eCW1 ([facility]) Patient Treatment Plan of Care Planned Activity Planned Date Details Description Data Source (s) doxycycline hyclate 100 MG Oral Capsule 10/10/2020 12:00:00 AM EST eCW1 ([facility]) doxycycline hyclate 100 MG Oral Capsule 10/10/2020 12:00:00 AM EST eCW1 ([facility]) doxycycline hyclate 100 MG Oral Capsule 10/10/2020 12:00:00 AM EST eCW1 ([facility])
[2021-09-14] MEDS ORDERED: CEPH500T PO (19:50)
== END 2021-09-14 20:03 | disposition home or self-care (01) ==
LOC: M ED 17:17
DX: S61.431A Puncture wound without foreign body of right hand, initial encounter (principal); W26.8XXA Contact with other sharp object(s), not elsewhere classified, initial encounter; Y92.89 Other specified places as the place of occurrence of the external cause; Y93.89 Activity, other specified; Y99.0 Civilian activity done for income or pay; Z79.84 Long term (current) use of oral hypoglycemic drugs; Z88.8 Allergy status to other drugs, medicaments and biological substances

== ENCOUNTER → 2022-01-15 | Outpatient (CLI) | payer OTHER ==
[~2022-01-15] MED LIST changes: +ASPI81CH33 PO; +ATOR40TA75; +CEPH500T PO
[2022-01-15 13:10] LABS: BASO % 0.5 % (0.0-1.0); EOS # 0.1 10^3/uL (0.0-0.5); EOS % 1.8 % (0.0-3.0); HEMATOCRIT 43.3 % (42.0-52.0); HEMOGLOBIN 13.8 g/dl (13.5-17.5); LYMPH # 2.2 10^3/uL (1.5-5.0); LYMPH % 28.3 % (24.0-44.0); MEAN CORPUSCULAR HEMOGLOBIN 27.8 pg (27.0-33.0); MEAN CORPUSCULAR HGB CONC 31.9 g/dl (32.0-36.5); MEAN CORPUSCULAR VOLUME 87.3 fl (80.0-96.0); MONO # 0.8 10^3/uL (0.0-0.8); MONO % 9.8 % (2.0-8.0); NEUTROPHILS # 4.7 10^3/uL (1.5-8.5); NEUTROPHILS % 59.2 % (36.0-66.0); PLATELET COUNT, AUTOMATED 359 10^3/uL (150-450); RED BLOOD COUNT 4.96 10^6/uL (4.30-6.10); WHITE BLOOD COUNT 7.9 10^3/uL (4.0-10.0)
[2022-01-15 13:57] LABS: CREATININE, URINE 66.6 MG/DL; MALB URINE SIEMENS 5.4 MG/L; MAU/CREAT RATIO 8.1 MCG/MG (0.0-30.0)
[2022-01-15 14:30] LABS: ALBUMIN 4.1 GM/DL (3.2-5.2); ALT/SGPT 27 U/L (12-78); BILIRUBIN,TOTAL 0.3 MG/DL (0.2-1.0); BLOOD UREA NITROGEN 14 MG/DL (7-18); CALCIUM LEVEL 9.7 MG/DL (8.5-10.1); CARBON DIOXIDE LEVEL 30 MEQ/L (21-32); CHLORIDE LEVEL 107 MEQ/L (98-107); CHOLESTEROL LEVEL 205 MG/DL (<200); CHOLESTEROL RISK RATIO 3.942 (<5); CREATININE FOR GFR 0.65 MG/DL (0.70-1.30); FREE T4 0.96 NG/DL (0.76-1.46); GLOMERULAR FILTRATION RATE > 60.0 (>60); GLUCOSE, FASTING 96 MG/DL (70-100); HDL CHOLESTEROL 52 MG/DL (>40); LDL CHOLESTEROL 135 MG/DL (<100); NON-HDL-C 153 MG/DL; POTASSIUM SERUM 4.7 MEQ/L (3.5-5.1); SODIUM LEVEL 141 MEQ/L (136-145); THYROID STIMULATING HORMONE 0.762 uIU/ML (0.358-3.740); TOTAL PROTEIN 6.9 GM/DL (6.4-8.2); TRIGLYCERIDES LEVEL 90 MG/DL (<150); VITAMIN B12 LEVEL 572 PG/ML (247-911)
[2022-01-15 14:34] LABS: HEMOGLOBIN A1c 6.2 %
== END ==
LOC: M PLALAB 11:12
PROVIDERS: ATTEND Physician Assistant
DX: E11.9 Type 2 diabetes mellitus without complications (principal)

== ENCOUNTER → 2022-03-20 | Outpatient (CLI) | payer OTHER ==
[~2022-03-20] MED LIST changes: -ATOR40TA75; +ATOR40TA75 PO
== END ==
LOC: M LAB 11:42
PROVIDERS: ATTEND Nurse Practitioner Women's Health
DX: Z85.47 Personal history of malignant neoplasm of testis (principal)

== ENCOUNTER → 2022-04-06 | Outpatient (CLI) | payer OTHER | LOC: M LABSMTC 10:59 | PROVIDERS: ATTEND Anesthesiology | DX: Z01.812 Encounter for preprocedural laboratory examination (principal) ==

== ENCOUNTER 2022-04-09 06:27 | Day surgery (SDC) | payer OTHER ==
[~2022-04-09] VITALS: Ht 172.7 cm; Wt 72.1 kg
[~2022-04-09 06:27] MED LIST changes: +NS 1,000 ML IV ONE
[2022-04-09] MEDS ORDERED: propofoL 200 MG/20 ML VIAL As Ordered ONE ×2 (07:19→08:04)
[2022-04-09] MEDS ORDERED: LIDOCAINE 2% 100MG/5ML SDV (FOR ANES.) As Ordered ONE (07:19)
[2022-04-09 09:03] VITALS: BP 113/72
== END 2022-04-09 12:30 | disposition home or self-care (01) ==
LOC: M OPP 06:27
PROVIDERS: ATTEND Surgery
DX: Z12.11 Encounter for screening for malignant neoplasm of colon (principal); D12.6 Benign neoplasm of colon, unspecified; E78.00 Pure hypercholesterolemia, unspecified; E11.9 Type 2 diabetes mellitus without complications; F17.210 Nicotine dependence, cigarettes, uncomplicated; Z85.47 Personal history of malignant neoplasm of testis; Z79.84 Long term (current) use of oral hypoglycemic drugs; Z79.899 Other long term (current) drug therapy; Z83.3 Family history of diabetes mellitus

== ENCOUNTER → 2022-04-17 | Outpatient (CLI) | payer OTHER ==
[~2022-04-17] MED LIST changes: -NS 1,000 ML IV ONE
[2022-04-17 18:33] LABS: BLOOD UREA NITROGEN 20 MG/DL (7-18); CALCIUM LEVEL 9.8 MG/DL (8.5-10.1); CARBON DIOXIDE LEVEL 29 MEQ/L (21-32); CHLORIDE LEVEL 105 MEQ/L (98-107); CREATININE FOR GFR 0.96 MG/DL (0.70-1.30); GLOMERULAR FILTRATION RATE > 60.0 (>60); GLUCOSE, FASTING 132 MG/DL (70-100); POTASSIUM SERUM 4.5 MEQ/L (3.5-5.1); SODIUM LEVEL 141 MEQ/L (136-145)
== END ==
LOC: M LAB 16:45
PROVIDERS: ATTEND Nurse Practitioner Women's Health
DX: Z01.818 Encounter for other preprocedural examination (principal)

== ENCOUNTER → 2022-04-18 | Outpatient (CLI) | payer OTHER ==
[~2022-04-18] MED LIST changes: +ISOVUE-370 76% 100ML VIAL As Ordered ONE
== END ==
LOC: M RAD 08:06
PROVIDERS: ATTEND Nurse Practitioner Women's Health
DX: Z85.47 Personal history of malignant neoplasm of testis (principal)
CPT/HCPCS: 74177; Q9967

== ENCOUNTER → 2022-10-23 | Outpatient (CLI) | payer OTHER ==
[~2022-10-23] MED LIST changes: -ISOVUE-370 76% 100ML VIAL As Ordered ONE
[2022-10-23 14:50] LABS: CHOLESTEROL RISK RATIO 3.35 (<5); HDL CHOLESTEROL 70.6 MG/DL (>40); LDL CHOLESTEROL 143.6 MG/DL (<100)
[2022-10-23 15:53] LABS: HEMOGLOBIN A1c 5.8 % (4.0-6.0)
== END ==
LOC: M PLALAB 09:32
PROVIDERS: ATTEND Physician Assistant
DX: E11.9 Type 2 diabetes mellitus without complications (principal)

== ENCOUNTER → 2022-12-16 | Outpatient (CLI) | payer MEDICAID | LOC: M OUTALCOH 07:46 | PROVIDERS: ATTEND Psychiatry & Neurology Psychiatry | DX: F10.10 Alcohol abuse, uncomplicated (principal) ==

== ENCOUNTER 2022-12-22 08:04 | Outpatient (RCR) | payer MEDICAID | END 2022-12-23 | LOC: M OUTALCOH 08:04 | PROVIDERS: ATTEND Psychiatry & Neurology Psychiatry | DX: F10.20 Alcohol dependence, uncomplicated (principal); F17.200 Nicotine dependence, unspecified, uncomplicated ==

== ENCOUNTER 2023-01-22 09:00 | Outpatient (RCR) | payer MEDICAID | END 2023-01-23 | LOC: M OUTALCOH 09:00 | PROVIDERS: ATTEND Psychiatry & Neurology Psychiatry | DX: F10.20 Alcohol dependence, uncomplicated (principal); F14.20 Cocaine dependence, uncomplicated; F17.200 Nicotine dependence, unspecified, uncomplicated ==

== ENCOUNTER 2023-02-16 08:00 | Outpatient (RCR) | payer MEDICAID | END 2023-02-22 | LOC: M OUTALCOH 08:00 | PROVIDERS: ATTEND Psychiatry & Neurology Psychiatry | DX: F10.20 Alcohol dependence, uncomplicated (principal); F14.20 Cocaine dependence, uncomplicated; F17.200 Nicotine dependence, unspecified, uncomplicated ==

== ENCOUNTER 2023-03-16 08:00 | Outpatient (RCR) | payer MEDICAID | END 2023-03-25 | LOC: M OUTALCOH 08:00 | PROVIDERS: ATTEND Psychiatry & Neurology Psychiatry | DX: F10.20 Alcohol dependence, uncomplicated (principal); F14.20 Cocaine dependence, uncomplicated; F17.200 Nicotine dependence, unspecified, uncomplicated ==

== ENCOUNTER → 2023-03-19 | Outpatient (CLI) | payer MEDICAID | LOC: M PLALAB 08:26 | PROVIDERS: ATTEND Physician Assistant | DX: Z85.47 Personal history of malignant neoplasm of testis (principal) ==

== ENCOUNTER → 2023-04-03 | Outpatient (CLI) | payer OTHER ==
[2023-04-03 11:00] LABS: ALBUMIN 3.9 G/DL (3.2-5.2); ALKALINE PHOSPHATASE 47 U/L (46-116); ALT/SGPT 32 U/L (7.0-40); AST/SGOT 23 U/L (<34); BILIRUBIN,TOTAL 0.6 MG/DL (0.3-1.2); BLOOD UREA NITROGEN 20 MG/DL (9-23); CALCIUM LEVEL 9.5 MG/DL (8.5-10.1); CARBON DIOXIDE LEVEL 30 MMOL/L (20-31); CHLORIDE LEVEL 106 MMOL/L (98-107); CHOLESTEROL LEVEL 167 MG/DL (<200); CHOLESTEROL RISK RATIO 3.31 (<5); GLOMERULAR FILTRATION RATE > 60.0 (>60); GLUCOSE, FASTING 95 MG/DL (60-100); HDL CHOLESTEROL 50.4 MG/DL (>40); LDL CHOLESTEROL 97.6 MG/DL (<100); NON-HDL-C 116.6 MG/DL; POTASSIUM SERUM 4.7 MMOL/L (3.5-5.1); SODIUM LEVEL 141 MMOL/L (136-145); TOTAL PROTEIN 6.7 G/DL (5.7-8.2); TRIGLYCERIDES LEVEL 95 MG/DL (<150)
[2023-04-03 11:13] LABS: HEMOGLOBIN A1c 6.1 % (4.0-6.0)
== END ==
LOC: M PLALAB 08:32
PROVIDERS: ATTEND Physician Assistant
DX: E78.2 Mixed hyperlipidemia (principal); E11.9 Type 2 diabetes mellitus without complications

== ENCOUNTER 2023-04-21 08:00 | Outpatient (RCR) | payer MEDICAID | END 2023-04-24 | LOC: M OUTALCOH 08:00 | PROVIDERS: ATTEND Psychiatry & Neurology Psychiatry | DX: F10.20 Alcohol dependence, uncomplicated (principal); F14.20 Cocaine dependence, uncomplicated; F17.200 Nicotine dependence, unspecified, uncomplicated ==

== ENCOUNTER → 2023-04-30 | Outpatient (CLI) | payer OTHER ==
[~2023-04-30] MED LIST changes: +ISOVUE-370 76% 100ML VIAL As Ordered ONE
== END ==
LOC: M RAD 09:07
PROVIDERS: ATTEND Physician Assistant
DX: K57.90 Diverticulosis of intestine, part unspecified, without perforation or abscess without bleeding (principal); Z85.47 Personal history of malignant neoplasm of testis
CPT/HCPCS: 74178; Q9967

== ENCOUNTER → 2023-04-30 | Outpatient (CLI) | payer OTHER ==
[~2023-04-30] MED LIST changes: -ISOVUE-370 76% 100ML VIAL As Ordered ONE
== END ==
LOC: M RAD 11:11
PROVIDERS: ATTEND Physician Assistant Medical
DX: M71.4 Calcium deposit in bursa (principal)

== ENCOUNTER 2023-05-05 08:00 | Outpatient (RCR) | payer MEDICAID | END 2023-05-25 | LOC: M OUTALCOH 08:00 | PROVIDERS: ATTEND Psychiatry & Neurology Psychiatry | DX: F10.20 Alcohol dependence, uncomplicated (principal); F14.20 Cocaine dependence, uncomplicated; F17.200 Nicotine dependence, unspecified, uncomplicated ==

== ENCOUNTER → 2023-09-25 | Outpatient (CLI) | payer OTHER ==
[2023-09-25 15:55] LABS: BASO # 0.1 10^3/uL (0.0-0.2); BASO % 0.5 % (0.0-1.0); EOS # 0.1 10^3/uL (0.0-0.5); EOS % 1.2 % (0.0-3.0); HEMATOCRIT 41.9 % (42.0-52.0); HEMOGLOBIN 13.1 g/dl (13.5-17.5); LYMPH # 4.4 10^3/uL (1.5-5.0); LYMPH % 43.5 % (24.0-44.0); MEAN CORPUSCULAR HEMOGLOBIN 27.7 pg (27.0-33.0); MEAN CORPUSCULAR HGB CONC 31.3 g/dl (32.0-36.5); MEAN CORPUSCULAR VOLUME 88.6 fl (80.0-96.0); MONO # 0.8 10^3/uL (0.0-0.8); MONO % 8.2 % (2.0-8.0); NEUTROPHILS # 4.7 10^3/uL (1.5-8.5); NEUTROPHILS % 46.5 % (36.0-66.0); PLATELET COUNT, AUTOMATED 355 10^3/uL (150-450); RED BLOOD COUNT 4.73 10^6/uL (4.30-6.10); WHITE BLOOD COUNT 10.2 10^3/uL (4.0-10.0)
[2023-09-25 16:17] LABS: LDH LACTATE DEHYDROGENASE 196 U/L (120-246)
[2023-09-25 16:18] LABS: ALBUMIN 4.1 G/DL (3.2-5.2); ALKALINE PHOSPHATASE 51 U/L (46-116); ALT/SGPT 23 U/L (7.0-40); AST/SGOT 18 U/L (<34); BILIRUBIN,TOTAL 0.4 MG/DL (0.3-1.2); BLOOD UREA NITROGEN 21 MG/DL (9-23); CALCIUM LEVEL 9.6 MG/DL (8.5-10.1); CARBON DIOXIDE LEVEL 27 MMOL/L (20-31); CHLORIDE LEVEL 108 MMOL/L (98-107); GLOMERULAR FILTRATION RATE > 60.0 (>60); GLUCOSE, FASTING 81 MG/DL (60-100); POTASSIUM SERUM 4.3 MMOL/L (3.5-5.1); SODIUM LEVEL 143 MMOL/L (136-145); TOTAL PROTEIN 6.9 G/DL (5.7-8.2)
== END ==
LOC: M LAB 14:53
PROVIDERS: ATTEND Physician Assistant
DX: Z85.47 Personal history of malignant neoplasm of testis (principal)

== ENCOUNTER → 2023-09-30 | Outpatient (CLI) | payer OTHER | LOC: M RAD 15:03 | PROVIDERS: ATTEND Physician Assistant | DX: Z01.818 Encounter for other preprocedural examination (principal) ==

== ENCOUNTER 2023-10-07 09:42 | Day surgery (SDC) | payer OTHER ==
[~2023-10-07] VITALS: Ht 172.7 cm; Wt 74.9 kg
[~2023-10-07 09:42] MED LIST changes: +ceFAZolin SOD 2 GM in IV 1 EA IV ONE
[2023-10-07] MEDS ORDERED: LR 1,000 ML IV SCH ×2 (09:55→12:55)
[2023-10-07] MEDS ORDERED: EPINEPHrine INJ 1 MG/ML 1ML AMP As Ordered ONE (10:52)
[2023-10-07] MEDS ORDERED: MIDAZOLAM INJ 2MG/2ML VIAL As Ordered ONE (10:52)
[2023-10-07] MEDS ORDERED: fentaNYL 100 MCG/2 ML INJECTION As Ordered ONE ×2 (10:52→12:14)
[2023-10-07] MEDS ORDERED: KETOROLAC 60MG 2ML VIAL As Ordered ONE (10:53)
[2023-10-07] MEDS ORDERED: ROCURONIUM BROMIDE 50MG/5ML VIAL As Ordered ONE (10:54)
[2023-10-07] MEDS ORDERED: ONDANSETRON 4MG 2ML VIAL As Ordered ONE (10:54)
[2023-10-07] MEDS ORDERED: LIDOCAINE 2% 100MG/5ML SDV (FOR ANES.) As Ordered ONE (10:54)
[2023-10-07] MEDS ORDERED: SUGAMMADEX SODIUM 500 MG/5 ML VIAL (BRIDION) As Ordered ONE (10:54)
[2023-10-07] MEDS ORDERED: propofoL 200 MG/20 ML VIAL As Ordered ONE (10:54)
[2023-10-07] MEDS ORDERED: LIDOCAINE 1% SDV 30ML VIAL As Ordered ONE (11:18)
[2023-10-07] MEDS ORDERED: fentaNYL 100 MCG/2 ML INJECTION IV PRN (12:55)
[2023-10-07] MEDS ORDERED: ONDANSETRON 4MG 2ML VIAL IV PRN (12:55)
[2023-10-07] MEDS ORDERED: OXYC1TAB23 PO (13:04)
[2023-10-07] MEDS: oxyCODONE 5MG TAB PO PRN ×2 (13:14→14:06)
[2023-10-07] MEDS ORDERED: PERCOCET 5MG/325MG TAB PO PRN (14:20)
[2023-10-07 14:50] VITALS: BP 135/90; TEMP 97.2; O2SAT 100
== END 2023-10-07 15:01 | disposition home or self-care (01) ==
LOC: M SDC 09:42
PROVIDERS: ATTEND Urology
DX: C62.91 Malignant neoplasm of right testis, unspecified whether descended or undescended (principal); C63.1 Malignant neoplasm of spermatic cord; E11.9 Type 2 diabetes mellitus without complications; E78.00 Pure hypercholesterolemia, unspecified; Z79.899 Other long term (current) drug therapy; Z79.84 Long term (current) use of oral hypoglycemic drugs; Z88.1 Allergy status to other antibiotic agents; F17.210 Nicotine dependence, cigarettes, uncomplicated
CPT/HCPCS: 54530; 88309; J0171; J0665; J0690; J1100; J1885; J2250; J2405; J3010

== ENCOUNTER → 2023-11-09 | Outpatient (CLI) | payer OTHER ==
[~2023-11-09] MED LIST changes: +GASTROGRAFIN SOLUTION 30ML As Ordered ONE; +ISOVUE-370 76% 100ML VIAL As Ordered ONE; +OXYC1TAB23 PO; -ceFAZolin SOD 2 GM in IV 1 EA IV ONE
== END ==
LOC: M RAD 10:30
PROVIDERS: ATTEND Urology
DX: C62.11 Malignant neoplasm of descended right testis (principal); J98.11 Atelectasis
CPT/HCPCS: 74177; Q9967

== ENCOUNTER → 2023-11-09 | Outpatient (CLI) | payer OTHER ==
[~2023-11-09] MED LIST changes: -GASTROGRAFIN SOLUTION 30ML As Ordered ONE; -ISOVUE-370 76% 100ML VIAL As Ordered ONE
== END ==
LOC: M LAB 10:11
PROVIDERS: ATTEND Urology
DX: C62.11 Malignant neoplasm of descended right testis (principal)

== ENCOUNTER → 2023-11-26 | Outpatient (CLI) | payer OTHER | LOC: M LAB 08:44 | PROVIDERS: ATTEND Urology | DX: E29.1 Testicular hypofunction (principal) ==

== ENCOUNTER → 2024-02-11 | Outpatient (CLI) | payer OTHER ==
[~2024-02-11] MED LIST changes: +ISOVUE-370 76% 100ML VIAL As Ordered ONE
== END ==
LOC: M RAD 09:22
PROVIDERS: ATTEND Urology
DX: C62.11 Malignant neoplasm of descended right testis (principal); Z90.79 Acquired absence of other genital organ(s)
CPT/HCPCS: 74177; Q9967

== ENCOUNTER → 2024-02-13 | Outpatient (CLI) | payer OTHER ==
[~2024-02-13] MED LIST changes: -ISOVUE-370 76% 100ML VIAL As Ordered ONE
== END ==
LOC: M LAB 10:01
PROVIDERS: ATTEND Urology
DX: C62.11 Malignant neoplasm of descended right testis (principal); Z90.79 Acquired absence of other genital organ(s)

== ENCOUNTER 2024-02-15 16:24 | Emergency (ER) | payer OTHER ==
[~2024-02-15] VITALS: Ht 172.7 cm; Wt 73.9 kg
[2024-02-15 16:53] LABS: BASO # 0.1 10^3/uL (0.0-0.2); BASO % 0.4 % (0.0-1.0); EOS # 0.1 10^3/uL (0.0-0.5); EOS % 1.1 % (0.0-3.0); HEMATOCRIT 41.3 % (42.0-52.0); HEMOGLOBIN 12.8 g/dl (13.5-17.5); LYMPH # 4.6 10^3/uL (1.5-5.0); LYMPH % 38.6 % (24.0-44.0); MEAN CORPUSCULAR HEMOGLOBIN 27.5 pg (27.0-33.0); MEAN CORPUSCULAR VOLUME 88.6 fl (80.0-96.0); MONO # 0.7 10^3/uL (0.0-0.8); MONO % 5.6 % (2.0-8.0); NEUTROPHILS # 6.4 10^3/uL (1.5-8.5); NEUTROPHILS % 53.5 % (36.0-66.0); PLATELET COUNT, AUTOMATED 381 10^3/uL (150-450); RED BLOOD COUNT 4.66 10^6/uL (4.30-6.10)
[2024-02-15 17:19] LABS: ETHYL ALCOHOL (ETHANOL) 0.202 % (0.000-0.010)
[2024-02-15 17:21] LABS: ALBUMIN 3.7 G/DL (3.2-5.2); ALKALINE PHOSPHATASE 55 U/L (46-116); ALT/SGPT 14 U/L (7.0-40); AST/SGOT 14 U/L (<34); BILIRUBIN,DIRECT < 0.1 MG/DL (<0.4); BILIRUBIN,TOTAL 0.2 MG/DL (0.3-1.2); BLOOD UREA NITROGEN 11 MG/DL (9-23); CALCIUM LEVEL 9.5 MG/DL (8.5-10.1); CARBON DIOXIDE LEVEL 27 MMOL/L (20-31); CHLORIDE LEVEL 108 MMOL/L (98-107); CPK CREATINE PHOSPHOKINASE 108 U/L (46-171); CREATININE FOR GFR 0.92 MG/DL (0.70-1.30); GLOMERULAR FILTRATION RATE > 60.0 (>60); GLUCOSE, FASTING 141 MG/DL (60-100); POTASSIUM SERUM 4.1 MMOL/L (3.5-5.1); SALICYLATE LEVEL < 3.0 MG/DL (<30); SODIUM LEVEL 143 MMOL/L (136-145); TOTAL PROTEIN 6.5 G/DL (5.7-8.2)
[2024-02-15 17:23] LABS: THYROID STIMULATING HORMONE 0.767 uIU/ML (0.55-4.78)
[2024-02-15 17:29] LABS: OSMOLALITY SERUM 349 MOSM/KG (275-295)
[2024-02-15] MEDS: NS 1,000 ML IV SCH (17:33)
[2024-02-15 17:42] LABS: AMPHETAMINES LEVEL URINE NEGATIVE (NEGATIVE); BARBITURATES URINE NEGATIVE (NEGATIVE); COCAINE METABOLITE URINE NEGATIVE (NEGATIVE); METHADONE URINE NEGATIVE (NEGATIVE); OPIATES URINE NEGATIVE (NEGATIVE); PHENCYCLIDINE URINE NEGATIVE (NEGATIVE)
[2024-02-15 17:43] LABS: BENZODIAZEPINES URINE NEGATIVE (NEGATIVE)
[2024-02-15 17:48] LABS: CANNABINOIDS URINE POSITIVE (NEGATIVE)
[2024-02-15 18:12] LABS: CK-MB VALUE MASS 1.5 NG/ML (<3.6); MB/CK RELATIVE INDEX 1.06 (< OR =4)
[2024-02-15 18:15] LABS: CK-MB VALUE MASS 1.1 NG/ML (<3.6); MB/CK RELATIVE INDEX 1.01 (< OR =4)
[2024-02-15 18:30] VITALS: TEMP 98.3
[2024-02-15 19:36] VITALS: BP 118/76; O2SAT 97
== END 2024-02-15 19:37 | disposition home or self-care (01) ==
LOC: M ED 16:24
DX: F10.129 Alcohol abuse with intoxication, unspecified (principal); E11.9 Type 2 diabetes mellitus without complications; J45.909 Unspecified asthma, uncomplicated; E78.5 Hyperlipidemia, unspecified; F17.200 Nicotine dependence, unspecified, uncomplicated; Z79.899 Other long term (current) drug therapy; Z88.8 Allergy status to other drugs, medicaments and biological substances

== ENCOUNTER → 2024-04-05 | Outpatient (CLI) | payer OTHER ==
[2024-04-05 15:52] LABS: HEMOGLOBIN A1c 5.6 % (4.0-6.0)
[2024-04-05 16:05] LABS: CHOLESTEROL LEVEL 229 MG/DL (<200); CHOLESTEROL RISK RATIO 5.22 (<5); HDL CHOLESTEROL 43.8 MG/DL (>40); LDL CHOLESTEROL 148.4 MG/DL (<100); NON-HDL-C 185.2 MG/DL; TRIGLYCERIDES LEVEL 184 MG/DL (<150)
[2024-04-05 16:32] LABS: HIV 1&2 SCREEN NEGATIVE (NEGATIVE)
[2024-04-05 16:40] LABS: HEPATITIS C VIRUS ABY INDEX 0.03 INDEX (<0.8)
== END ==
LOC: M PLALAB 12:05
PROVIDERS: ATTEND Family Medicine
DX: E11.9 Type 2 diabetes mellitus without complications (principal)

== ENCOUNTER → 2024-05-06 | Outpatient (CLI) | payer OTHER ==
[2024-05-06 12:18] LABS: HEMATOCRIT 44.9 % (42.0-52.0); HEMOGLOBIN 14.7 g/dl (13.5-17.5)
[2024-05-06 12:30] LABS: LDH LACTATE DEHYDROGENASE 194 U/L (120-246)
[2024-05-06 12:31] LABS: BLOOD UREA NITROGEN 19 MG/DL (9-23); CALCIUM LEVEL 9.2 MG/DL (8.5-10.1); CARBON DIOXIDE LEVEL 30 MMOL/L (20-31); CHLORIDE LEVEL 108 MMOL/L (98-107); CREATININE FOR GFR 0.76 MG/DL (0.70-1.30); GLOMERULAR FILTRATION RATE > 60.0 (>60); GLUCOSE, FASTING 87 MG/DL (60-100); POTASSIUM SERUM 4.6 MMOL/L (3.5-5.1); SODIUM LEVEL 141 MMOL/L (136-145)
[2024-05-06 12:33] LABS: TESTOSTERONE 878 NG/DL (241-827)
== END ==
LOC: M RAD 10:49
PROVIDERS: ATTEND Urology
DX: C62.11 Malignant neoplasm of descended right testis (principal); E29.1 Testicular hypofunction

== ENCOUNTER → 2024-05-09 | Outpatient (CLI) | payer OTHER ==
[~2024-05-09] MED LIST changes: +ISOVUE-370 76% 100ML VIAL As Ordered ONE
== END ==
LOC: M RAD 14:06
PROVIDERS: ATTEND Urology
DX: C62.11 Malignant neoplasm of descended right testis (principal)
CPT/HCPCS: 74177; Q9967

== ENCOUNTER → 2024-11-18 | Outpatient (CLI) | payer OTHER ==
[~2024-11-18] MED LIST changes: -ISOVUE-370 76% 100ML VIAL As Ordered ONE
[2024-11-18 16:57] LABS: HEMATOCRIT 49.9 % (42.0-52.0); HEMOGLOBIN 16.1 g/dl (13.5-17.5)
[2024-11-18 17:23] LABS: BLOOD UREA NITROGEN 14 MG/DL (9-23); CALCIUM LEVEL 10.4 MG/DL (8.5-10.1); CARBON DIOXIDE LEVEL 30 MMOL/L (20-31); CHLORIDE LEVEL 107 MMOL/L (98-107); CREATININE FOR GFR 0.82 MG/DL (0.70-1.30); GLOMERULAR FILTRATION RATE > 60.0 (>60); GLUCOSE, FASTING 95 MG/DL (60-100); POTASSIUM SERUM 5.4 MMOL/L (3.5-5.1); SODIUM LEVEL 142 MMOL/L (136-145)
[2024-11-18 17:25] LABS: TESTOSTERONE 390 NG/DL (241-827)
== END ==
LOC: M PLALAB 12:23
PROVIDERS: ATTEND Urology
DX: C62.11 Malignant neoplasm of descended right testis (principal)

== ENCOUNTER → 2024-11-25 | Outpatient (CLI) | payer OTHER ==
[~2024-11-25] MED LIST changes: +ISOVUE-370 76% 100ML VIAL As Ordered ONE
== END ==
LOC: M RAD 10:40
PROVIDERS: ATTEND Urology
DX: C62.11 Malignant neoplasm of descended right testis (principal)
CPT/HCPCS: 74177; Q9967

== ENCOUNTER → 2024-12-08 | Outpatient (CLI) | payer OTHER ==
[~2024-12-08] MED LIST changes: -ISOVUE-370 76% 100ML VIAL As Ordered ONE
[2024-12-08 16:45] LABS: BLOOD UREA NITROGEN 17 MG/DL (9-23); CARBON DIOXIDE LEVEL 30 MMOL/L (20-31); CHLORIDE LEVEL 104 MMOL/L (98-107); CREATININE FOR GFR 0.66 MG/DL (0.70-1.30); GLOMERULAR FILTRATION RATE > 60.0 (>60); GLUCOSE, FASTING 81 MG/DL (60-100); POTASSIUM SERUM 4.9 MMOL/L (3.5-5.1); SODIUM LEVEL 142 MMOL/L (136-145)
== END ==
LOC: M PLALAB 10:57
PROVIDERS: ATTEND Urology
DX: E87.5 Hyperkalemia (principal)

== ENCOUNTER → 2025-04-27 | Outpatient (CLI) | payer OTHER ==
[2025-04-27 12:13] LABS: ESTIMATED AVERAGE GLUCOSE 128.0 MG/DL (60-110)
[2025-04-27 12:34] LABS: CHOLESTEROL LEVEL 148.0 MG/DL (<200); CHOLESTEROL RISK RATIO 4.35 (<5); CREATININE, URINE 59.9 MG/DL; LDL CHOLESTEROL 97.2 MG/DL (<100); MALB URINE SIEMENS < 3.0 MG/L; NON-HDL-C 114.0 MG/DL; TRIGLYCERIDES LEVEL 84.0 MG/DL (<150)
== END ==
LOC: M PLALAB 07:56
PROVIDERS: ATTEND Family Medicine
DX: E11.9 Type 2 diabetes mellitus without complications (principal); E78.2 Mixed hyperlipidemia

== ENCOUNTER 2025-05-14 11:38 | Emergency (ER) | payer MEDICAID, OTHER ==
[~2025-05-14] VITALS: Ht 172.7 cm; Wt 79.3 kg
[2025-05-14] MEDS ORDERED: CEPH500C (12:19)
[2025-05-14 13:27] LABS: BASO # 0.0 10^3/uL (0.0-0.2); BASO % 0.4 % (0.0-1.0); EOS # 0.3 10^3/uL (0.0-0.5); EOS % 2.4 % (0.0-3.0); LYMPH # 3.3 10^3/uL (1.5-5.0); LYMPH % 30.4 % (24.0-44.0); MONO # 1.0 10^3/uL (0.0-0.8); MONO % 9.1 % (2.0-8.0); NEUTROPHILS # 6.3 10^3/uL (1.5-8.5); NEUTROPHILS % 57.5 % (36.0-66.0); PLATELET COUNT, AUTOMATED 318 10^3/uL (150-450)
[2025-05-14 13:40] LABS: INR 0.94
[2025-05-14 13:59] LABS: ALT/SGPT 19 U/L (7.0-40); AST/SGOT 21 U/L (<34); C REACTIVE PROTEIN QUANTITATIV 1.14 MG/DL (<1.0); CALCIUM LEVEL 9.5 MG/DL (8.5-10.1); CARBON DIOXIDE LEVEL 26 MMOL/L (20-31); CHLORIDE LEVEL 104 MMOL/L (98-107); CREATININE FOR GFR 0.79 MG/DL (0.70-1.30); GLOMERULAR FILTRATION RATE > 90.0 (>60); POTASSIUM SERUM 4.6 MMOL/L (3.5-5.1); SODIUM LEVEL 143 MMOL/L (136-145)
[2025-05-14 14:17] VITALS: BP 125/71; TEMP 97.7; O2SAT 98
== END 2025-05-14 14:43 | disposition home or self-care (01) ==
LOC: M ED 11:38
DX: T81.89XA Other complications of procedures, not elsewhere classified, initial encounter (principal); E11.9 Type 2 diabetes mellitus without complications; C62.90 Malignant neoplasm of unspecified testis, unspecified whether descended or undescended; F17.210 Nicotine dependence, cigarettes, uncomplicated; Z88.8 Allergy status to other drugs, medicaments and biological substances; Z79.2 Long term (current) use of antibiotics; Z79.84 Long term (current) use of oral hypoglycemic drugs; Z79.899 Other long term (current) drug therapy

== ENCOUNTER 2025-05-24 08:40 | Outpatient (RCR) | payer MEDICAID ==
[~2025-05-24 08:40] MED LIST changes: +CEPH500C
== END 2025-05-25 ==
LOC: M OUTALCOH 08:40
PROVIDERS: ATTEND Psychiatry & Neurology Psychiatry
DX: F10.20 Alcohol dependence, uncomplicated (principal); F12.10 Cannabis abuse, uncomplicated; F14.20 Cocaine dependence, uncomplicated; F17.200 Nicotine dependence, unspecified, uncomplicated

== ENCOUNTER → 2025-06-01 | Outpatient (CLI) | payer MEDICAID, OTHER ==
[2025-06-01 15:19] LABS: CALCIUM LEVEL 9.6 MG/DL (8.5-10.1); CARBON DIOXIDE LEVEL 29 MMOL/L (20-31); CHLORIDE LEVEL 105 MMOL/L (98-107); CREATININE FOR GFR 0.89 MG/DL (0.70-1.30); GLOMERULAR FILTRATION RATE > 90.0 (>60); POTASSIUM SERUM 4.7 MMOL/L (3.5-5.1); SODIUM LEVEL 143 MMOL/L (136-145); TESTOSTERONE 518 NG/DL (241-827)
== END ==
LOC: M RAD 11:27
PROVIDERS: ATTEND Urology
DX: C62.11 Malignant neoplasm of descended right testis (principal); Z90.79 Acquired absence of other genital organ(s); E29.1 Testicular hypofunction

== ENCOUNTER 2025-06-23 15:00 | Outpatient (RCR) | payer MEDICAID | END 2025-06-25 | LOC: M OUTALCOH 15:00 | PROVIDERS: ATTEND Psychiatry & Neurology Psychiatry | DX: F10.20 Alcohol dependence, uncomplicated (principal); F12.10 Cannabis abuse, uncomplicated; F14.20 Cocaine dependence, uncomplicated; F17.200 Nicotine dependence, unspecified, uncomplicated ==

== ENCOUNTER 2025-07-03 20:46 | Emergency (ER) | payer MEDICAID, OTHER ==
[~2025-07-03] VITALS: Ht 172.7 cm; Wt 77.1 kg
[2025-07-03 22:52] LABS: BASO # 0.1 10^3/uL (0.0-0.2); BASO % 0.4 % (0.0-1.0); EOS # 0.2 10^3/uL (0.0-0.5); EOS % 1.6 % (0.0-3.0); LYMPH # 4.1 10^3/uL (1.5-5.0); LYMPH % 30.7 % (24.0-44.0); MONO # 1.4 10^3/uL (0.0-0.8); MONO % 10.3 % (2.0-8.0); NEUTROPHILS # 7.6 10^3/uL (1.5-8.5); NEUTROPHILS % 56.8 % (36.0-66.0); PLATELET COUNT, AUTOMATED 436 10^3/uL (150-450)
[2025-07-03 22:57] LABS: ERYTHROCYTE SEDIMENTATION RATE 49 mm/hr (0-15)
[2025-07-04 00:28] LABS: C REACTIVE PROTEIN QUANTITATIV 0.82 MG/DL (<1.0); CALCIUM LEVEL 9.5 MG/DL (8.5-10.1); CARBON DIOXIDE LEVEL 29 MMOL/L (20-31); CHLORIDE LEVEL 109 MMOL/L (98-107); CREATININE FOR GFR 0.77 MG/DL (0.70-1.30); GLOMERULAR FILTRATION RATE > 90.0 (>60); POTASSIUM SERUM 4.4 MMOL/L (3.5-5.1); SODIUM LEVEL 145 MMOL/L (136-145)
[2025-07-04] MEDS ORDERED: CEPH500C PO (04:52)
[2025-07-04] MEDS: CEPHALEXIN 500 MG CAP PO ONE (04:58)
[2025-07-04 05:00] VITALS: TEMP 97.5; O2SAT 100
[2025-07-04 05:30] VITALS: BP 138/80
[2025-07-05] MEDS ORDERED: TRIA55AE2 NARES (22:57)
[2025-07-05] MEDS ORDERED: ALBU8.5H INH (22:57)
== END 2025-07-04 05:49 | disposition home or self-care (01) ==
LOC: M ED 20:46
DX: L02.214 Cutaneous abscess of groin (principal); E11.9 Type 2 diabetes mellitus without complications; J45.909 Unspecified asthma, uncomplicated; E03.9 Hypothyroidism, unspecified; F17.210 Nicotine dependence, cigarettes, uncomplicated; Z88.8 Allergy status to other drugs, medicaments and biological substances; Z79.2 Long term (current) use of antibiotics; Z79.84 Long term (current) use of oral hypoglycemic drugs; Z79.899 Other long term (current) drug therapy
CPT/HCPCS: 36415; 76857; 80048; 84145; 85025; 85652; 86140; 87040; 87070; 87077; 87186; 96372; 99214; 99284; J3145

== ENCOUNTER 2025-07-05 12:11 | Day surgery (SDC) | payer OTHER ==
[~2025-07-05] VITALS: Ht 172.7 cm; Wt 76.9 kg
[~2025-07-05 12:11] MED LIST changes: +CEPH500C PO
[2025-07-05] MEDS: LR 1,000 ML IV SCH (13:15)
[2025-07-05] MEDS: LIDOCAINE 1% SDV 30 ML VIAL As Ordered ONE (13:54)
[2025-07-05] MEDS ORDERED: MIDAZOLAM INJ 2 MG/2 ML VIAL As Ordered ONE (13:58)
[2025-07-05] MEDS ORDERED: LIDOCAINE 2% 100 MG/5 ML SDV (FOR ANES.) As Ordered ONE (13:58)
[2025-07-05] MEDS ORDERED: ONDANSETRON 4MG 2ML VIAL As Ordered ONE (14:27)
[2025-07-05] MEDS ORDERED: dexAMETHasone 4 MG/ML 1 ML VIAL As Ordered ONE (14:27)
[2025-07-05] MEDS: cefTRIAXone SOD 1 GM in DEXTROSE 5% (D5W) ADV/MINI-BAG 50 ML IV ONE (14:30)
[2025-07-05] MEDS ORDERED: ACETAMINOPHEN 1000MG/100ML IV BAG As Ordered ONE (14:30)
[2025-07-05] MEDS ORDERED: MORPHINE 4 MG/ML 1 ML VIAL IV PRN (15:05)
[2025-07-05] MEDS: HYDROMORPHONE HCL 0.5 MG/0.5 ML SYRINGE IV PRN (15:13)
[2025-07-05] MEDS ORDERED: ONDANSETRON 4MG 2ML VIAL IV PRN ×2 (15:15→15:20)
[2025-07-05] MEDS ORDERED: GLUCOSE 4 GM CHEW PO PRN (15:15)
[2025-07-05] MEDS ORDERED: GLUCAGON INJ 1 MG VIAL SC PRN (15:15)
[2025-07-05] MEDS ORDERED: ACETAMINOPHEN 325 MG TAB PO PRN (15:15)
[2025-07-05] MEDS ORDERED: DEXTROSE 50% 50 ML SYRINGE IV PRN (15:15)
[2025-07-05 16:33] VITALS: BP 134/85; TEMP 98; O2SAT 98
[2025-07-05] MEDS: INSULIN LISPRO (NovoLOG) PER UNIT SC SCH ×2 (17:30→21:00)
[2025-07-05 17:31] VITALS: BP 130/83; TEMP 98.2; O2SAT 98
[2025-07-05] MEDS: CLINDAMYCIN 150 MG CAPSULE PO SCH (17:35)
[2025-07-05 18:30] VITALS: BP 129/79; TEMP 97.8; O2SAT 99
[2025-07-05 19:30] VITALS: BP 130/81; TEMP 97.8; O2SAT 98
[2025-07-05 20:30] VITALS: BP 134/82; TEMP 97.7; O2SAT 98
[2025-07-05] MEDS: DOCUSATE SODIUM 100 MG CAPSULE PO SCH (20:37)
[2025-07-05] MEDS: CEPHALEXIN 500 MG CAP PO SCH (20:37)
[2025-07-05 21:30] VITALS: BP 141/86; TEMP 96.9; O2SAT 99
[2025-07-05] MEDS ORDERED: ALBU8.5H INH (22:57)
[2025-07-05] MEDS ORDERED: TRIA55AE2 NARES (22:57)
[2025-07-05] MEDS ORDERED: HOME MED LIST COMPLETE! XX SCH (23:00)
[2025-07-06 01:30] VITALS: BP 130/81; TEMP 97; O2SAT 99
[2025-07-06 05:30] VITALS: BP 130/85; TEMP 97.3; O2SAT 97
[2025-07-06] MEDS: PERCOCET 5MG/325MG TAB PO PRN (05:59)
[2025-07-06 06:56] LABS: PLATELET COUNT, AUTOMATED 386 10^3/uL (150-450)
[2025-07-06 07:22] LABS: CALCIUM LEVEL 9.6 MG/DL (8.5-10.1); CARBON DIOXIDE LEVEL 27 MMOL/L (20-31); CHLORIDE LEVEL 105 MMOL/L (98-107); CREATININE FOR GFR 0.68 MG/DL (0.70-1.30); GLOMERULAR FILTRATION RATE > 90.0 (>60); POTASSIUM SERUM 4.4 MMOL/L (3.5-5.1); SODIUM LEVEL 143 MMOL/L (136-145)
[2025-07-06 08:08] VITALS: BP 133/74; TEMP 97.3; O2SAT 97
[2025-07-06] MEDS ORDERED: CLIN150C17 PO (09:12)
[2025-07-06] MEDS ORDERED: CEPH500C PO (09:12)
[2025-07-06] MEDS ORDERED: PERCOCET PO (09:12)
[2025-07-06] MEDS: ATORVASTATIN 20 MG TAB PO SCH (09:41)
[2025-07-06 12:00] VITALS: BP 125/81; TEMP 97.8; O2SAT 100
== END 2025-07-06 16:35 | disposition home or self-care (01) ==
LOC: M SDC 12:11 → M MS4PR 16:00 → M SDC 07-06 16:35
PROVIDERS: ATTEND Urology
DX: T81.89XA Other complications of procedures, not elsewhere classified, initial encounter (principal); Y83.6 Removal of other organ (partial) (total) as the cause of abnormal reaction of the patient, or of later complication, without mention of misadventure at the time of the procedure; Z90.79 Acquired absence of other genital organ(s); Z85.47 Personal history of malignant neoplasm of testis
CPT/HCPCS: 10061; 36415; 80048; 85027; J0131; J0696; J1100; J1171; J2250; J2405; J3010

== ENCOUNTER 2025-07-24 15:00 | Outpatient (RCR) | payer MEDICAID ==
[~2025-07-24 15:00] MED LIST changes: +ALBU8.5H INH; +CLIN150C17 PO; +PERCOCET PO; +TRIA55AE2 NARES
== END 2025-07-25 ==
LOC: M OUTALCOH 15:00
PROVIDERS: ATTEND Psychiatry & Neurology Psychiatry
DX: F10.20 Alcohol dependence, uncomplicated (principal); F12.10 Cannabis abuse, uncomplicated; F14.20 Cocaine dependence, uncomplicated; F17.200 Nicotine dependence, unspecified, uncomplicated

== ENCOUNTER 2025-08-21 16:00 | Outpatient (RCR) | payer MEDICAID | END 2025-08-25 | LOC: M OUTALCOH 16:00 | PROVIDERS: ATTEND Psychiatry & Neurology Psychiatry | DX: F10.20 Alcohol dependence, uncomplicated (principal); F14.20 Cocaine dependence, uncomplicated; F12.10 Cannabis abuse, uncomplicated; F17.200 Nicotine dependence, unspecified, uncomplicated ==

== ENCOUNTER 2025-09-20 16:00 | Outpatient (RCR) | payer MEDICAID | END 2025-09-24 | LOC: M OUTALCOH 16:00 | PROVIDERS: ATTEND Psychiatry & Neurology Psychiatry | DX: F10.20 Alcohol dependence, uncomplicated (principal); F14.20 Cocaine dependence, uncomplicated; F12.10 Cannabis abuse, uncomplicated; F17.200 Nicotine dependence, unspecified, uncomplicated ==

== ENCOUNTER 2025-10-11 16:00 | Outpatient (RCR) | payer MEDICAID | END 2025-10-25 | LOC: M OUTALCOH 16:00 | PROVIDERS: ATTEND Psychiatry & Neurology Psychiatry | DX: F10.20 Alcohol dependence, uncomplicated (principal); F12.10 Cannabis abuse, uncomplicated; F14.20 Cocaine dependence, uncomplicated; F17.200 Nicotine dependence, unspecified, uncomplicated ==